=== PATIENT | male | born 1955 | race Caucasian/White ===

== ENCOUNTER 2020-09-22 12:05 | Day surgery (SDC) | payer MEDICARE, OTHER, MEDICAID ==
[~2020-09-22] VITALS: Ht 182.9 cm; Wt 68.5 kg
[2020-09-22] VITALS (10 sets, daily range): BP systolic 114–128; BP diastolic 68–81
[~2020-09-22 12:05] MED LIST: ASPI-1265 PO; ATOR20TA PO; DILT60CA2 PO; FLEC50TA28 PO; VANCOMYCIN INJ 1000 MG in NORMAL SALINE 250ml IV.SOLN IV ONE; albuterol 2.5 MG/3 ML nebule NEB ONE; cefazolin/dext.iso 2gm/100ml IV ONE; famotidine 20mg tablet PO ONE; ringers solution, lacted 1,000 ML IV SCH
[2020-09-22] MEDS ORDERED: bacitracin 15gm ointment TP ONE (16:28)
[2020-09-22] MEDS ORDERED: BUPIVAcaine/PF 2.5 mg/ml (0.25%) 30ml vial ONE (16:29)
[2020-09-22] MEDS ORDERED: midazolam 1 mg/ML 2ml injection ONE (16:45)
[2020-09-22] MEDS ORDERED: propofol inj 20 ML IV ONE (16:52)
[2020-09-22] MEDS ORDERED: LIDOcaine 2% (20mg/ml) 5ml vial ONE (16:53)
[2020-09-22] MEDS ORDERED: phenylephrine 10mg/ml inj. ONE ×2 (16:58→17:02)
[2020-09-22] MEDS ORDERED: fentaNYL/PF 50MCG/1 ML 2ML syringe ONE (17:01)
[2020-09-22] MEDS ORDERED: 0.9 % SODIUM CHLORIDE 10 ML VIAL ONE ×2 (17:14)
[2020-09-22] MEDS ORDERED: dexamethasone sod phosphate 4mg/ml inj. ONE (17:15)
[2020-09-22] MEDS ORDERED: ondansetron/PF 4mg/2ml inj ONE (17:15)
--- NOTE | 2020-09-22 17:46 | NUR ---
Received from OR via RUBEN, accompanied by Anesthesiologist DR GEE and report given by Anesthesiologist. 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 Addendum: 09/22/20 at 1810 by Mariel Benavides RN Amended: Links added.
--- NOTE | 2020-09-22 19:26 | NUR ---
PT COMFORTABLE, DENIES PAIN, VOIDED X 3, WAS ABLE TO PIVOT SELF FROM GURNEY TO W/C AND FROM W/C TO CAR W/O ANY INCIDENCE. D/C INSTRUCTIONS GIVEN AND GONE OVER W/PT AND PTS SISTER WHO VERBALIZED UNDERSTANDING. Addendum: 09/22/20 at 1940 by Mariel Benavides RN Amended: Links added.
== END 2020-09-22 19:26 | disposition home or self-care (01) ==
LOC: PAS 12:05
PROVIDERS: ATTEND Podiatrist Foot & Ankle Surgery
DX: M86.172 Other acute osteomyelitis, left ankle and foot (principal); I96 Gangrene, not elsewhere classified; I12.9 Hypertensive chronic kidney disease with stage 1 through stage 4 chronic kidney disease, or unspecified chronic kidney disease; N18.9 Chronic kidney disease, unspecified; Z79.899 Other long term (current) drug therapy; Z72.89 Other problems related to lifestyle; Z85.51 Personal history of malignant neoplasm of bladder; Z92.21 Personal history of antineoplastic chemotherapy; Z98.41 Cataract extraction status, right eye; Z98.42 Cataract extraction status, left eye; Z98.890 Other specified postprocedural states; Z87.891 Personal history of nicotine dependence
CPT/HCPCS: 28820; 82948; A6223; J1100; J2001; J2250; J2370; J2405; J2704; J3010; J3370; J3490; A4215; A4618; A6449; A7000; J7120

== ENCOUNTER 2021-09-06 10:07 | Inpatient (IN) | payer MEDICARE, OTHER, MEDICAID ==
[~2021-09-06] VITALS: Ht 182.9 cm; Wt 74.2 kg
[~2021-09-06 10:07] MED LIST changes: -VANCOMYCIN INJ 1000 MG in NORMAL SALINE 250ml IV.SOLN IV ONE; -albuterol 2.5 MG/3 ML nebule NEB ONE; -cefazolin/dext.iso 2gm/100ml IV ONE; -famotidine 20mg tablet PO ONE; -ringers solution, lacted 1,000 ML IV SCH
[2021-09-06 10:55] LABS: BASOPHILS % (AUTO) 0.9 % (0-1); EOSINOPHILS # (AUTO) 0.1 X10'3 (0-0.9); EOSINOPHILS % (AUTO) 2.8 % (0-6); HEMATOCRIT 41.2 % (42.0-52.0); HEMOGLOBIN 13.8 g/dl (14.0-17.9); LYMPHOCYTES % (AUTO) 21.9 % (21-51); MEAN CORPUSCULAR HEMOGLOBIN 31.8 PG (27.0-31.0); MEAN CORPUSCULAR HGB CONC 33.6 g/dL (33.0-36.5); MEAN CORPUSCULAR VOLUME 94.8 FL (78-98); MEAN PLATELET VOLUME 6.5 FL (7.4-10.4); MONOCYTES # (AUTO) 0.3 X10'3 (0-0.9); MONOCYTES % (AUTO) 7.3 % (2-12); NEUTROPHILS # (AUTO) 3.1 X10'3 (1.8-7.7); NEUTROPHILS % (AUTO) 67.1 % (42-75); PLATELET COUNT 403 X10'3 (140-440); RED BLOOD COUNT 4.34 X10'6 (4.70-6.10); RED CELL DISTRIBUTION WIDTH 15.3 % (11.5-14.5); WHITE BLOOD COUNT 4.6 X10'3 (4.5-11.0)
[2021-09-06 11:15] LABS: ALANINE AMINOTRANSFERASE 28 U/L (12-78); ALBUMIN 3.8 G/DL (3.4-5.0); ALKALINE PHOSPHATASE 73 IU/L (46-116); ANION GAP 8 (8-16); ASPARTATE AMINO TRANSFERASE 21 U/L (10-37); BILIRUBIN,TOTAL 0.2 MG/DL (0.1-1.0); BLOOD UREA NITROGEN 13 MG/DL (7-18); BUN/CREATININE RATIO 11.4 (5.4-32.0); CALCIUM 8.8 MG/DL (8.5-10.1); CHLORIDE 103 MMOL/L (99-107); CREATININE 1.14 MG/DL (0.60-1.10); GLUCOSE 99 MG/DL (70-104); POTASSIUM 4.2 MMOL/L (3.5-5.1); SODIUM 139 MMOL/L (135-145); TOTAL CARBON DIOXIDE 28.3 MMOL/L (24-32); TOTAL PROTEIN 7.8 G/DL (6.4-8.2); eGFR 64 ML/MIN
[2021-09-06] MEDS ORDERED: cefepime 2g/NS 100ml ADVANTAGE 100 ML IV ONE (11:40)
[2021-09-06] MEDS ORDERED: vancomycin/NS 1 GM ADD-VANTAGE 250 ML IV ONE (11:40)
[2021-09-06] MEDS ORDERED: NO HOME MEDS (13:07)
[2021-09-06] MEDS ORDERED: iohexol 350MG/ML 100ml bottle IV ONE (13:25)
[2021-09-06] MEDS ORDERED: iohexol 350 MG/ML 50ML vial IV ONE (13:25)
[2021-09-06] MEDS ORDERED: heparin 10,000 units/1 ML INJ IV PRN (17:25)
[2021-09-06] MEDS ORDERED: heparin 25,000 UNIT/250ml bag 250 ML IV SCH (17:25)
[2021-09-06] MEDS ORDERED: heparin 10,000 units/1 ML INJ IV ONE ×2 (17:25→17:50)
[2021-09-06] MEDS ORDERED: magnesium hydroxide 30ml (MOM) UD suspension PO PRN (18:05)
[2021-09-06] MEDS ORDERED: acetaminophen 650mg rectal suppository RC PRN (18:05)
[2021-09-06] MEDS ORDERED: diphenhydrAMINE 25mg capsule PO PRN (18:05)
[2021-09-06] MEDS ORDERED: mag hydrox/Alum hydrox/simeth 30ml oral suspension PO PRN (18:05)
[2021-09-06] MEDS ORDERED: HYDROcodone/acetaminophen 10/325mg tab PO PRN (18:05)
[2021-09-06] MEDS ORDERED: potassium Cl 20 mEq SR tablet PO PRN ×2 (18:05)
[2021-09-06] MEDS ORDERED: magnesium Cl slow-release 64mg tablet PO PRN (18:05)
[2021-09-06] MEDS ORDERED: magnesium 4gm in 100ml NS 100 ML IV PRN (18:05)
[2021-09-06] MEDS ORDERED: ondansetron/PF 4mg/2ml inj IV PRN (18:05)
[2021-09-06] MEDS ORDERED: potassium CL 10mEq/100ml bag 100 ML IV PRN (18:05)
[2021-09-06] MEDS ORDERED: morphine 2 MG/ML inj. syringe IV PRN ×2 (18:05)
[2021-09-06] MEDS ORDERED: magnesium 2GM in 50ml NS 50 ML IV PRN (18:05)
[2021-09-06] MEDS ORDERED: acetaminophen 325mg tablet PO PRN ×2 (18:05)
[2021-09-06] MEDS ORDERED: bisacodyl 10mg suppository rectal RC PRN (18:05)
[2021-09-06 18:06] LABS: BASOPHILS # (AUTO) 0.1 X10'3 (0-0.2); BASOPHILS % (AUTO) 1.1 % (0-1); EOSINOPHILS # (AUTO) 0.2 X10'3 (0-0.9); EOSINOPHILS % (AUTO) 3.9 % (0-6); HEMATOCRIT 38.5 % (42.0-52.0); HEMOGLOBIN 13.1 g/dl (14.0-17.9); LYMPHOCYTES # (AUTO) 1.5 X10'3 (1.1-4.8); LYMPHOCYTES % (AUTO) 29.6 % (21-51); MEAN CORPUSCULAR HEMOGLOBIN 32.5 PG (27.0-31.0); MEAN CORPUSCULAR VOLUME 95.7 FL (78-98); MEAN PLATELET VOLUME 6.5 FL (7.4-10.4); MONOCYTES # (AUTO) 0.4 X10'3 (0-0.9); MONOCYTES % (AUTO) 8.7 % (2-12); NEUTROPHILS # (AUTO) 2.8 X10'3 (1.8-7.7); NEUTROPHILS % (AUTO) 56.7 % (42-75); PLATELET COUNT 386 X10'3 (140-440); RED BLOOD COUNT 4.03 X10'6 (4.70-6.10); RED CELL DISTRIBUTION WIDTH 14.6 % (11.5-14.5)
[2021-09-06 18:18] LABS: APTT 35 SECONDS (22-32)
[2021-09-06 18:26] LABS: HEMOGLOBIN A1C 6.3 % (4.5-6.2)
[2021-09-06] MEDS: docusate sod 100mg capsule PO SCH (20:00)
[2021-09-06] MEDS: K and/or MAG REPLACEMENT MC SCH (20:22)
[2021-09-06 21:16] LABS: CLARITY,URINE CLEAR (Clear); COLOR,URINE YELLOW (Yellow); GLUCOSE, URINE NEGATIVE (Neg); KETONES,URINE NEGATIVE (Neg); LEUKOCYTE ESTERASE ,URINE NEGATIVE (Neg); NITRITES, URINE NEGATIVE (Neg); OCCULT BLOOD,URINE NEGATIVE (Neg); PROTEIN,URINE NEGATIVE (Neg); UROBILINOGEN,URINE 0.2 E.U/dL (0.2-1.0)
[2021-09-06] MEDS: normal saline 1000ml 1,000 ML IV SCH (21:29)
[2021-09-06 21:38] LABS: UA COLLECTION TYPE VOIDED
[2021-09-07] MEDS: vancomycin/NS 1 GM ADD-VANTAGE 250 ML IV SCH ×2 (00:46→12:05)
[2021-09-07] MEDS: piperacillin/tazo 3.375gm/50ml 50 ML IV SCH ×3 (00:46→18:00)
--- NOTE | 2021-09-07 03:00 | NUR ---
IV note patient incidently pulled out peripheral IV lines x 5. when asked how IV came out he said he did not know. "I was only using my urinal and did not feel anything." IV restarted by charge entry specialist all IV sites in left arm.
--- NOTE | 2021-09-07 06:11 | NUR ---
right AC attempted for am lab draw without success
[2021-09-07 06:41] LABS: BASOPHILS # (AUTO) 0.1 X10'3 (0-0.2); BASOPHILS % (AUTO) 1.2 % (0-1); EOSINOPHILS # (AUTO) 0.2 X10'3 (0-0.9); EOSINOPHILS % (AUTO) 4.5 % (0-6); HEMATOCRIT 40.9 % (42.0-52.0); HEMOGLOBIN 13.8 g/dl (14.0-17.9); LYMPHOCYTES # (AUTO) 0.8 X10'3 (1.1-4.8); LYMPHOCYTES % (AUTO) 18.5 % (21-51); MEAN CORPUSCULAR HEMOGLOBIN 31.8 PG (27.0-31.0); MEAN CORPUSCULAR HGB CONC 33.7 g/dL (33.0-36.5); MEAN CORPUSCULAR VOLUME 94.3 FL (78-98); MEAN PLATELET VOLUME 6.7 FL (7.4-10.4); MONOCYTES # (AUTO) 0.3 X10'3 (0-0.9); NEUTROPHILS # (AUTO) 2.9 X10'3 (1.8-7.7); NEUTROPHILS % (AUTO) 68.8 % (42-75); PLATELET COUNT 357 X10'3 (140-440); RED BLOOD COUNT 4.33 X10'6 (4.70-6.10); RED CELL DISTRIBUTION WIDTH 14.6 % (11.5-14.5); WHITE BLOOD COUNT 4.3 X10'3 (4.5-11.0)
--- NOTE | 2021-09-07 07:00 | NUR ---
Pt given warm blanket, checked vitals. No apparent distress or further needs at this time.
[2021-09-07 07:14] LABS: ALANINE AMINOTRANSFERASE 22 U/L (12-78); ALBUMIN 3.3 G/DL (3.4-5.0); ALBUMIN/GLOBULIN RATIO 0.9 (1.1-1.5); ALKALINE PHOSPHATASE 73 IU/L (46-116); ANION GAP 10 (8-16); ASPARTATE AMINO TRANSFERASE 21 U/L (10-37); BILIRUBIN,TOTAL 0.4 MG/DL (0.1-1.0); BLOOD UREA NITROGEN 12 MG/DL (7-18); BUN/CREATININE RATIO 11.4 (5.4-32.0); CALCIUM 8.5 MG/DL (8.5-10.1); CHLORIDE 103 MMOL/L (99-107); CHOL/HDL RATIO 2.7 (0.00-4.99); CHOLESTEROL 127 MG/DL (0-200); CREATININE 1.05 MG/DL (0.60-1.10); GLUCOSE 91 MG/DL (70-104); HDL CHOLESTEROL 47 MG/DL (35-60); LDL CHOLESTEROL 74 MG/DL (50-100); MAGNESIUM 2.1 MG/DL (1.5-2.4); PHOSPHORUS 3.4 MG/DL (2.3-4.5); POTASSIUM 4.2 MMOL/L (3.5-5.1); SODIUM 138 MMOL/L (135-145); TOTAL CARBON DIOXIDE 25.2 MMOL/L (24-32); TRIGLYCERIDES 55 MG/DL (20-135); eGFR 71 ML/MIN
[2021-09-07] MEDS: normal saline 1000ml 1,000 ML IV SCH ×2 (07:21→20:45)
[2021-09-07] MEDS: docusate sod 100mg capsule PO SCH ×2 (08:00→20:00)
[2021-09-07] MEDS: K and/or MAG REPLACEMENT MC SCH ×2 (08:00→20:00)
--- NOTE | 2021-09-07 09:57 | NUR ---
Pt ate about 75% of his breakfast. No apparent distress or needs. Changed his linens, pt was up to bedside commode and had 1 BM. 580ml UA clear yellow.
--- NOTE | 2021-09-07 11:30 | NUR ---
Sister visited pt and updated on progress.
--- NOTE | 2021-09-07 12:00 | NUR ---
Abx hung. Pt helped into comfortable position, no further needs. Lights turned off for comfort.
[2021-09-07 12:28] LABS: APTT 44 SECONDS (22-32)
--- NOTE | 2021-09-07 13:56 | NUR ---
Held the bolus because pt was at PTT of 44, one point from therapeutic level. Increased rate by 2 units/kg/hr. See flowsheet for further.
--- NOTE | 2021-09-07 14:55 | NUR ---
Pt sleeping, no apparent distress at this time.
--- NOTE | 2021-09-07 15:13 | NUR ---
Emptied urinal- 450ml light yellow urine.
--- NOTE | 2021-09-07 15:17 | NUR ---
Called PCU to give report. RN to call back.
[2021-09-07] MEDS ORDERED: nitroGLYCERIN 0.4mg SUBLingual tab SL PRN (17:00)
[2021-09-07] MEDS ORDERED: PERFLUTREN PROTEIN-A MICROSPHR (Optison) 0.22 MG/ML 3ML VIAL IV ONE (17:00)
[2021-09-07] MEDS ORDERED: aminophylline 500mg/20ml vial IV PRN (17:00)
[2021-09-07] MEDS ORDERED: metoprolol tartrate 1mg/ml inj IV PRN (17:00)
[2021-09-07] MEDS ORDERED: regadenoson 0.4mg/5ml syringe IV PRN (17:00)
[2021-09-07 18:00] VITALS: BP 106/72
--- NOTE | 2021-09-07 18:20 | NUR ---
Patient in room PCU 3015. I have received report from YENY Medina and had the opportunity to ask questions and assume patient care.
--- NOTE | 2021-09-07 18:21 | NUR ---
Problems reprioritized. Patient report given, questions answered & plan of care reviewed with YENY Gao RN.
--- NOTE | 2021-09-07 19:01 | NUR ---
Patient in room PCU 3015. I have received report from YENY Medina and had the opportunity to ask questions and assume patient care.
--- NOTE | 2021-09-07 20:22 | NUR ---
[id number]-JASON COMBS-ON HEPARIN GTT; NEED CHANGE OF ORDER FOR DVT HEPARIN PROTOCOL-PATIENT ON INCORRECT HEPARIN PROTOCOL ON EMAR-PLEASE CALL YENY AT [phone]. THANK YOU
[2021-09-07] MEDS ORDERED: heparin 10,000 units/1 ML INJ IV ONE (20:25)
[2021-09-07] MEDS: heparin 25,000 UNIT/250ml bag 250 ML IV SCH (21:27)
[2021-09-07 22:00] VITALS: BP 112/64
[2021-09-07] MEDS ORDERED: VANCOMYCIN LEVEL IV ONE (23:30)
[2021-09-08] VITALS (13 sets, daily range): BP systolic 83–119; BP diastolic 46–86
[2021-09-08] MEDS: vancomycin/NS 1 GM ADD-VANTAGE 250 ML IV SCH (00:06)
[2021-09-08] MEDS: heparin 10,000 units/1 ML INJ IV PRN ×2 (00:53→13:28)
[2021-09-08] MEDS: heparin 25,000 UNIT/250ml bag 250 ML IV SCH ×3 (00:55→21:42)
[2021-09-08] MEDS: piperacillin/tazo 3.375gm/50ml 50 ML IV SCH ×3 (04:05→16:35)
--- NOTE | 2021-09-08 06:32 | NUR ---
Problems reprioritized. Patient report given, questions answered & plan of care reviewed with YENY Agee
[2021-09-08 06:49] LABS: BASOPHILS % (AUTO) 0.8 % (0-1); EOSINOPHILS # (AUTO) 0.2 X10'3 (0-0.9); EOSINOPHILS % (AUTO) 4.5 % (0-6); HEMATOCRIT 37.2 % (42.0-52.0); HEMOGLOBIN 12.8 g/dl (14.0-17.9); LYMPHOCYTES % (AUTO) 22.2 % (21-51); MEAN CORPUSCULAR HEMOGLOBIN 32.6 PG (27.0-31.0); MEAN CORPUSCULAR HGB CONC 34.3 g/dL (33.0-36.5); MEAN CORPUSCULAR VOLUME 95.1 FL (78-98); MEAN PLATELET VOLUME 6.7 FL (7.4-10.4); MONOCYTES # (AUTO) 0.4 X10'3 (0-0.9); MONOCYTES % (AUTO) 8.3 % (2-12); NEUTROPHILS # (AUTO) 2.9 X10'3 (1.8-7.7); NEUTROPHILS % (AUTO) 64.2 % (42-75); PLATELET COUNT 334 X10'3 (140-440); RED BLOOD COUNT 3.91 X10'6 (4.70-6.10); RED CELL DISTRIBUTION WIDTH 14.5 % (11.5-14.5); WHITE BLOOD COUNT 4.5 X10'3 (4.5-11.0)
[2021-09-08] MEDS: docusate sod 100mg capsule PO SCH ×2 (07:21→20:06)
--- NOTE | 2021-09-08 07:22 | NUR ---
Message: [id number] Genaro Corrales Do you still want stress test for srx clearance? He had one a year ago. Nuc med is asking. And his ptt is greater than 139, I stopped the heparin gtt.
[2021-09-08 07:29] LABS: ALANINE AMINOTRANSFERASE 21 U/L (12-78); ALBUMIN/GLOBULIN RATIO 0.8 (1.1-1.5); ALKALINE PHOSPHATASE 61 IU/L (46-116); ANION GAP 8 (8-16); ASPARTATE AMINO TRANSFERASE 21 U/L (10-37); BILIRUBIN,TOTAL 0.4 MG/DL (0.1-1.0); BLOOD UREA NITROGEN 13 MG/DL (7-18); CALCIUM 8.3 MG/DL (8.5-10.1); CHLORIDE 104 MMOL/L (99-107); CREATININE 1.08 MG/DL (0.60-1.10); GLUCOSE 90 MG/DL (70-104); MAGNESIUM 2.1 MG/DL (1.5-2.4); PHOSPHORUS 3.3 MG/DL (2.3-4.5); POTASSIUM 3.9 MMOL/L (3.5-5.1); SODIUM 138 MMOL/L (135-145); TOTAL CARBON DIOXIDE 25.7 MMOL/L (24-32); TOTAL PROTEIN 6.6 G/DL (6.4-8.2); eGFR 69 ML/MIN
[2021-09-08] MEDS: K and/or MAG REPLACEMENT MC SCH ×2 (08:00→20:00)
--- NOTE | 2021-09-08 09:05 | NUR ---
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 Addendum: 09/08/21 at 0911 by Merle Best LVN Amended: Links added.
[2021-09-08] MEDS: normal saline 1000ml 1,000 ML IV SCH ×2 (13:20→23:25)
[2021-09-08] MEDS: VANCOmycin 1250MG/NS 250ml Bag 250 ML IV SCH (13:42)
--- NOTE | 2021-09-08 18:07 | NUR ---
Pt was off the unit at 1100 vitals. Addendum: 09/08/21 at 1808 by Merle Best LVN Amended: Links added.
--- NOTE | 2021-09-08 18:18 | NUR ---
report received from YENY Medina RN
--- NOTE | 2021-09-08 18:48 | NUR ---
RECEIVED PATIENT REPORT FROM ELIESER VOGT. [place] VOGT
[2021-09-09] MEDS: VANCOmycin 1250MG/NS 250ml Bag 250 ML IV SCH ×2 (00:27→12:00)
[2021-09-09] MEDS: piperacillin/tazo 3.375gm/50ml 50 ML IV SCH ×3 (00:38→16:28)
[2021-09-09 02:00] VITALS: BP 99/68
[2021-09-09] MEDS: heparin 25,000 UNIT/250ml bag 250 ML IV SCH ×2 (03:46→04:47)
[2021-09-09 06:00] VITALS: BP 119/59
--- NOTE | 2021-09-09 06:37 | NUR ---
PATIENT REPORT GIVEN TO SILVA HO RN.
[2021-09-09 06:58] LABS: BASOPHILS % (AUTO) 0.7 % (0-1); EOSINOPHILS # (AUTO) 0.2 X10'3 (0-0.9); EOSINOPHILS % (AUTO) 5.3 % (0-6); HEMATOCRIT 38.5 % (42.0-52.0); HEMOGLOBIN 12.9 g/dl (14.0-17.9); LYMPHOCYTES # (AUTO) 0.9 X10'3 (1.1-4.8); MEAN CORPUSCULAR HEMOGLOBIN 31.9 PG (27.0-31.0); MEAN CORPUSCULAR HGB CONC 33.6 g/dL (33.0-36.5); MEAN PLATELET VOLUME 6.9 FL (7.4-10.4); MONOCYTES # (AUTO) 0.4 X10'3 (0-0.9); MONOCYTES % (AUTO) 9.9 % (2-12); NEUTROPHILS # (AUTO) 2.9 X10'3 (1.8-7.7); NEUTROPHILS % (AUTO) 64.1 % (42-75); PLATELET COUNT 333 X10'3 (140-440); RED BLOOD COUNT 4.05 X10'6 (4.70-6.10); WHITE BLOOD COUNT 4.5 X10'3 (4.5-11.0)
[2021-09-09 07:10] LABS: ALANINE AMINOTRANSFERASE 21 U/L (12-78); ALBUMIN/GLOBULIN RATIO 0.7 (1.1-1.5); ALKALINE PHOSPHATASE 57 IU/L (46-116); ANION GAP 9 (8-16); ASPARTATE AMINO TRANSFERASE 19 U/L (10-37); BILIRUBIN,TOTAL 0.3 MG/DL (0.1-1.0); BLOOD UREA NITROGEN 12 MG/DL (7-18); BUN/CREATININE RATIO 11.1 (5.4-32.0); CALCIUM 8.7 MG/DL (8.5-10.1); CHLORIDE 104 MMOL/L (99-107); CREATININE 1.08 MG/DL (0.60-1.10); GLUCOSE 88 MG/DL (70-104); MAGNESIUM 2.3 MG/DL (1.5-2.4); PHOSPHORUS 3.3 MG/DL (2.3-4.5); POTASSIUM 4.1 MMOL/L (3.5-5.1); SODIUM 138 MMOL/L (135-145); TOTAL PROTEIN 7.3 G/DL (6.4-8.2); eGFR 69 ML/MIN
[2021-09-09] MEDS: K and/or MAG REPLACEMENT MC SCH ×2 (07:58→20:00)
[2021-09-09] MEDS: docusate sod 100mg capsule PO SCH ×2 (08:00→21:26)
[2021-09-09 11:00] VITALS: BP 83/45
[2021-09-09] MEDS: normal saline 1000ml 1,000 ML IV SCH (12:45)
[2021-09-09] MEDS: heparin 10,000 units/1 ML INJ IV PRN (14:04)
[2021-09-09 17:00] VITALS: BP 96/55
[2021-09-09 18:00] VITALS: BP 108/65
[2021-09-09 20:38] LABS: APTT 126 SECONDS (22-32)
--- NOTE | 2021-09-09 21:09 | NUR ---
RN called to notify pharmacy that vancomycin trough is 28.5, however, vancomycin trough is ordered for 0 on 09/09/21. Vancomycin dose is scheduled for 2329. Pharmacy states they will return the phone call regarding clarification of adminstration of vancomycin dose for 2329.
--- NOTE | 2021-09-09 21:19 | NUR ---
RN paged Dr. James at 7210 to notify that patient's APTT is 126, heparin gtt has been stopped per protocol and will be restarted in 2 hours. Last PTT prior to this was 31. Awaiting response at this time.
--- NOTE | 2021-09-09 21:39 | NUR ---
Dr. James returned call regarding previous note's page at [phone], no new orders received.
[2021-09-09 22:00] VITALS: BP 108/62
[2021-09-09] MEDS ORDERED: VANCOMYCIN LEVEL IV ONE (23:30)
[2021-09-10] MEDS: VANCOmycin 1250MG/NS 250ml Bag 250 ML IV SCH
--- NOTE | 2021-09-10 00:15 | NUR ---
RN called pharmacy to notify that vancomycin trough has resulted as 22.6 and there is a vancomycin dose ordered for 0000. RN spoke with pharmacist Jennifer whom states to administer vancomycin dose in 2-3 hours.
[2021-09-10] MEDS: piperacillin/tazo 3.375gm/50ml 50 ML IV SCH ×3 (00:20→15:36)
[2021-09-10] MEDS ORDERED: VANCOmycin 1250MG/NS 250ml Bag 250 ML IV SCH (00:27)
[2021-09-10 02:00] VITALS: BP 104/63
[2021-09-10] MEDS: normal saline 1000ml 1,000 ML IV SCH ×2 (02:05→15:32)
[2021-09-10 02:38] LABS: APTT 35 SECONDS (22-32)
[2021-09-10] MEDS: heparin 10,000 units/1 ML INJ IV PRN ×2 (02:59→19:42)
[2021-09-10] MEDS: heparin 25,000 UNIT/250ml bag 250 ML IV SCH (05:10)
[2021-09-10 06:30] VITALS: BP 118/77
[2021-09-10] MEDS: docusate sod 100mg capsule PO SCH ×2 (08:00→19:56)
[2021-09-10] MEDS: K and/or MAG REPLACEMENT MC SCH ×2 (08:00→19:57)
[2021-09-10 08:18] LABS: ALANINE AMINOTRANSFERASE 24 U/L (12-78); ALBUMIN 3.2 G/DL (3.4-5.0); ALBUMIN/GLOBULIN RATIO 0.8 (1.1-1.5); ALKALINE PHOSPHATASE 57 IU/L (46-116); ANION GAP 12 (8-16); ASPARTATE AMINO TRANSFERASE 26 U/L (10-37); BILIRUBIN,TOTAL 0.3 MG/DL (0.1-1.0); BLOOD UREA NITROGEN 12 MG/DL (7-18); BUN/CREATININE RATIO 10.8 (5.4-32.0); CALCIUM 8.7 MG/DL (8.5-10.1); CHLORIDE 104 MMOL/L (99-107); CREATININE 1.11 MG/DL (0.60-1.10); GLUCOSE 93 MG/DL (70-104); PHOSPHORUS 3.7 MG/DL (2.3-4.5); POTASSIUM 4.3 MMOL/L (3.5-5.1); SODIUM 138 MMOL/L (135-145); TOTAL CARBON DIOXIDE 22.3 MMOL/L (24-32); eGFR 66 ML/MIN
[2021-09-10 08:57] LABS: BASOPHILS % (AUTO) 0.6 % (0-1); EOSINOPHILS # (AUTO) 0.3 X10'3 (0-0.9); EOSINOPHILS % (AUTO) 5.8 % (0-6); HEMATOCRIT 38.6 % (42.0-52.0); HEMOGLOBIN 13.2 g/dl (14.0-17.9); LYMPHOCYTES % (AUTO) 20.1 % (21-51); MEAN CORPUSCULAR HEMOGLOBIN 32.5 PG (27.0-31.0); MEAN CORPUSCULAR HGB CONC 34.2 g/dL (33.0-36.5); MEAN CORPUSCULAR VOLUME 94.8 FL (78-98); MONOCYTES # (AUTO) 0.4 X10'3 (0-0.9); MONOCYTES % (AUTO) 8.1 % (2-12); NEUTROPHILS # (AUTO) 3.2 X10'3 (1.8-7.7); NEUTROPHILS % (AUTO) 65.4 % (42-75); PLATELET COUNT 317 X10'3 (140-440); RED BLOOD COUNT 4.08 X10'6 (4.70-6.10); WHITE BLOOD COUNT 4.9 X10'3 (4.5-11.0)
[2021-09-10 10:00] LABS: APTT > 139 SECONDS (22-32)
[2021-09-10 15:00] VITALS: BP 109/64
--- NOTE | 2021-09-10 15:45 | NUR ---
1545 Called OR, pt has been off heparin gtt since 999. Spoke with RN in surgery with Dr. Kwon and he said to "hold" the heparin drip for now.
--- NOTE | 2021-09-10 16:38 | NUR ---
9565 Received call from OR: Dr. Croft will not be doing surgery today, patient can have dinner tonight then be NPO at midnight tonight. Restart Heparin drip. stat PTT ordered. Diet ordered for dinner. Patient and Charge nurse informed.
[2021-09-10] MEDS: vancomycin/NS 1 GM ADD-VANTAGE 250 ML IV SCH (17:00)
[2021-09-10 18:00] VITALS: BP 112/73
[2021-09-10] MEDS ORDERED: ringers solution, lacted 1,000 ML IV ONE (18:05)
--- NOTE | 2021-09-10 18:39 | NUR ---
Patient in room PCU 3015. I have received report from breanna schafer and had the opportunity to ask questions and assume patient care.
--- NOTE | 2021-09-10 18:39 | NUR ---
Patient in room PCU 3015. I have received report from Divine VOGT and had the opportunity to ask questions and assume patient care.
[2021-09-10 22:00] VITALS: BP 100/64
[2021-09-11] VITALS (19 sets, daily range): BP systolic 99–153; BP diastolic 56–88
[2021-09-11] MEDS: piperacillin/tazo 3.375gm/50ml 50 ML IV SCH ×3 (00:27→16:00)
[2021-09-11 02:18] LABS: BASOPHILS # (AUTO) 0.1 X10'3 (0-0.2); EOSINOPHILS # (AUTO) 0.3 X10'3 (0-0.9); EOSINOPHILS % (AUTO) 5.4 % (0-6); HEMATOCRIT 38.2 % (42.0-52.0); LYMPHOCYTES # (AUTO) 1.1 X10'3 (1.1-4.8); LYMPHOCYTES % (AUTO) 19.4 % (21-51); MEAN CORPUSCULAR HEMOGLOBIN 32.6 PG (27.0-31.0); MEAN CORPUSCULAR HGB CONC 34.1 g/dL (33.0-36.5); MEAN CORPUSCULAR VOLUME 95.7 FL (78-98); MEAN PLATELET VOLUME 7.1 FL (7.4-10.4); MONOCYTES # (AUTO) 0.4 X10'3 (0-0.9); NEUTROPHILS # (AUTO) 3.9 X10'3 (1.8-7.7); NEUTROPHILS % (AUTO) 67.2 % (42-75); PLATELET COUNT 324 X10'3 (140-440); RED BLOOD COUNT 3.99 X10'6 (4.70-6.10); RED CELL DISTRIBUTION WIDTH 14.8 % (11.5-14.5); WHITE BLOOD COUNT 5.7 X10'3 (4.5-11.0)
[2021-09-11 02:31] LABS: ALANINE AMINOTRANSFERASE 26 U/L (12-78); ALBUMIN 2.8 G/DL (3.4-5.0); ALBUMIN/GLOBULIN RATIO 0.7 (1.1-1.5); ALKALINE PHOSPHATASE 53 IU/L (46-116); ANION GAP 12 (8-16); ASPARTATE AMINO TRANSFERASE 19 U/L (10-37); BILIRUBIN,TOTAL 0.3 MG/DL (0.1-1.0); BLOOD UREA NITROGEN 11 MG/DL (7-18); BUN/CREATININE RATIO 9.1 (5.4-32.0); CALCIUM 8.3 MG/DL (8.5-10.1); CHLORIDE 104 MMOL/L (99-107); CREATININE 1.21 MG/DL (0.60-1.10); GLUCOSE 95 MG/DL (70-104); PHOSPHORUS 3.9 MG/DL (2.3-4.5); POTASSIUM 3.9 MMOL/L (3.5-5.1); SODIUM 140 MMOL/L (135-145); TOTAL CARBON DIOXIDE 24.5 MMOL/L (24-32); TOTAL PROTEIN 6.6 G/DL (6.4-8.2); eGFR 60 ML/MIN
[2021-09-11] MEDS: normal saline 1000ml 1,000 ML IV SCH ×2 (04:45→18:05)
[2021-09-11] MEDS ORDERED: famotidine 20mg tablet PO ONE (06:00)
[2021-09-11] MEDS ORDERED: heparin 10,000 units/1 ML INJ ONE (07:40)
[2021-09-11] MEDS ORDERED: clindamycin phosphate 150mg/ml inj. ONE (07:40)
[2021-09-11] MEDS ORDERED: gentamicin 40 MG/1 ML inj ONE (07:40)
[2021-09-11] MEDS: K and/or MAG REPLACEMENT MC SCH ×2 (08:00→20:00)
[2021-09-11] MEDS: docusate sod 100mg capsule PO SCH ×2 (08:00→20:00)
[2021-09-11] MEDS: vancomycin/NS 1 GM ADD-VANTAGE 250 ML IV SCH ×2 (08:04→17:00)
[2021-09-11] MEDS ORDERED: morphine 4 MG/ML inj SYRINge IV PRN (08:30)
[2021-09-11] MEDS ORDERED: ondansetron/PF 4mg/2ml inj IV PRN ×2 (08:30→15:40)
[2021-09-11] MEDS ORDERED: morphine 2 MG/ML inj. syringe IV PRN (08:30)
[2021-09-11] MEDS ORDERED: fentaNYL/PF 50MCG/1 ML 2ML syringe IV PRN ×2 (08:30)
[2021-09-11] MEDS ORDERED: ringers solution, lacted 1,000 ML IV SCH ×2 (08:30→15:40)
[2021-09-11] MEDS ORDERED: hydrALAZINE 20mg/ml inj. IV PRN (08:30)
[2021-09-11] MEDS ORDERED: labetalol 20mg/4ml (5mg/ml) syringe IV PRN (08:30)
--- NOTE | 2021-09-11 08:40 | NUR ---
Initial: Pt admitted w/ severe peripheral vascular disease, possible osteomyelitis of the fifth digit with dry gangrene on top per EMR. Currently NPO for OR though was previously on Heart Healthy diet w/ ~75% avg PO intake of meals which is likely meeting his est nutrient needs. [facility] 09/07 receiving routine colace. No nutrition intervention implemented at this time, will continue to monitor. Recs: 1. Continue Heart Healthy diet as tolerated s/p procedure 2. Monitor need for ONS 3. Routine bowel care 4. Weekly wts Addendum: 09/11/21 at [address] Amended: Links added.
[2021-09-11] MEDS ORDERED: ePHEDrine 50MG/ML INJ. ONE (10:08)
[2021-09-11] MEDS ORDERED: sevoflurane 250ml liquid IH ONE (10:08)
[2021-09-11] MEDS ORDERED: midazolam 1 mg/ML 2ml injection ONE (10:10)
[2021-09-11] MEDS ORDERED: fentaNYL /PF 50mcg/ml 5ml ampule ONE (10:10)
[2021-09-11] MEDS ORDERED: propofol inj 20 ML IV ONE (10:12)
[2021-09-11] MEDS ORDERED: LIDOcaine 2% (20mg/ml) 5ml vial ONE (10:12)
[2021-09-11] MEDS ORDERED: dexamethasone sod phosphate 4mg/ml inj. ONE (10:12)
[2021-09-11] MEDS ORDERED: rocuronium 10mg/ml inj IV ONE ×3 (10:12)
[2021-09-11] MEDS ORDERED: ondansetron/PF 4mg/2ml inj ONE (10:12)
[2021-09-11] MEDS ORDERED: nitroPRUSSIDE (NIPRIDE) (200MCG/ML) 100ML Drip IV SCH (10:25)
[2021-09-11] MEDS ORDERED: PHENYLephrine 100 MG in NS 250ml IV soln IV SCH (10:25)
[2021-09-11] MEDS ORDERED: ceFAZolin 1000mg inj ONE ×2 (10:57→10:58)
--- NOTE | 2021-09-11 11:56 | NUR ---
[id number] assumed care of patient during this time. A/ox4, VSS, RA, No c/o pain. Heparin drip stopped at 0700. Pt able to make needs known. Pt has been NPO since midnight. 1200 POKER PROP PLAYER gathering up patient belongings and will take to new room.
[2021-09-11] MEDS ORDERED: albumin (Human) 5% 250ml 500 ML IV ONE ×3 (13:00→14:17)
[2021-09-11] MEDS ORDERED: albumin (Human) 5% 250ml 250 ML IV ONE ×4 (13:01→20:45)
[2021-09-11] MEDS ORDERED: heparin 1,000unit/ml 10ml vial 10 ML ONE (13:37)
[2021-09-11] MEDS ORDERED: fentaNYL/PF 50MCG/1 ML 2ML syringe ONE (14:30)
[2021-09-11] MEDS ORDERED: sugammadex 200mg/2ml injection IV ONE (15:22)
[2021-09-11] MEDS ORDERED: nitroPRUSSIDE sod inj. 50 MG in dextrose 5%-water 248 ML IV PRN (15:40)
[2021-09-11] MEDS ORDERED: midazolam 100mg in NS 100ml 100 ML IV PRN (15:40)
[2021-09-11] MEDS ORDERED: phenylephrine inj 50 MG in normal saline 250ml IV soln 250 ML IV PRN (15:40)
[2021-09-11] MEDS ORDERED: MIDAZolam 1 MG/ML 5ML VIAL ONE (15:50)
[2021-09-11] MEDS ORDERED: nitroPRUSSIDE 0.2mg/mL in NS 100 ML IV PRN (16:06)
--- NOTE | 2021-09-11 16:30 | NUR ---
Received from OR via BED, accompanied by Anesthesiologist REGAN and report given by Anesthesiolgist. PT SEDATED, NOT AROUSING TO VERBAL STIMULI OR MOVING EXTREMITIES YET. ETT IN PLACE, ON VENTILATOR, CXR ORDERED FOR ETT/LINE PLACEMENT. VSS, R RADIAL ART LINE. HYPOTHERMIC AT 34.4, HARIKA HUGGER ON. MIDLINE INCISION COVERED WITH ISLAND DSG, CDI. PROVENA DSGS TO B GROINS, ATTACHED TO WOUND VAC. FOAMS ARE FIRM, APPEARS TO HAVE GOOD SX DESPITE VAC ALARMING LEAK (DUE TO PT SKIN CONDITION) L PT PULSE PER DOPPLER, R DP PULSE TO DOPPLER. DR HAYS AWARE. OGT TO SX. DRY BLACK COLORED SMALL TOE ON LEFT FOOT. FC PATENT.
[2021-09-11] MEDS: FENTANYL-0.9 % NACL/PF 100 ML IV PRN (17:05)
[2021-09-11 17:38] LABS: ABG BASE EXCESS -10.6 mmol/L (-2.0-2.0); ABG HCO3 15.6 mmol/L (22.0-26.0); ABG OXYGEN SATURATION 96.6 % (94-97); ABG PCO2 (T) 32.2 mmHg (35.0-48.0); ABG PO2 (T) 90.3 mmHg (75.0-100.0); FCOHb 0.3 % (0.0-3.9); FMetHb 0.2 % (0.0-1.5); FO2Hb 96.1 % (94-97); PATIENT TEMPERATURE 34.6; PEEP 5 cm H2O; RESPIRATORY RATE 12 b/min; TIDAL VOLUME 550 mL; TOTAL HEMOGLOBIN 11.3 G/dl (14.0-18.0)
--- NOTE | 2021-09-11 17:40 | NUR ---
CXR DONE. IV SEDATION HUNG. NIPRIDE/NATHALIA TO KEEP SBP 120-130. REPORT GIVEN TO RECEVING RN. PT STABLE AT TRANSFER OF CARE.
--- NOTE | 2021-09-11 18:33 | NUR ---
Patient in room ICU 2040. I have received report from Lisa VOGT and had the opportunity to ask questions and assume patient care. VS were stable at end of my shift. Vent settings changed s/p abg results. Rate and FiO2 decreased based on ABG. Report given to Deni VOGT based on report from PERSONAL CLOTHING LAUNDRY AIDE. Reviewed drips at bedside. Examined Provina VAC that has an air leak. Sponges appear to be well suctioned despite air leak on machine. Pts skin condition may prevent good seal per OR team. No drainage note on either VAC. EBL reviewed with Deni on anesthesia record.
--- NOTE | 2021-09-11 20:00 | NUR ---
Called Dr Croft regarding HR and low CVP. Orders received for albumin, see EMAR. Also received order to DC heparin gtt.
[2021-09-11 20:11] LABS: BASOPHILS % (AUTO) 0.1 % (0-1); EOSINOPHILS % (AUTO) 0 % (0-6); HEMOGLOBIN 11.5 g/dl (14.0-17.9); LYMPHOCYTES # (AUTO) 0.3 X10'3 (1.1-4.8); LYMPHOCYTES % (AUTO) 3.9 % (21-51); MEAN CORPUSCULAR HEMOGLOBIN 32.4 PG (27.0-31.0); MEAN CORPUSCULAR HGB CONC 33.8 g/dL (33.0-36.5); MEAN CORPUSCULAR VOLUME 96.1 FL (78-98); MONOCYTES # (AUTO) 0.4 X10'3 (0-0.9); MONOCYTES % (AUTO) 4.2 % (2-12); NEUTROPHILS # (AUTO) 7.8 X10'3 (1.8-7.7); NEUTROPHILS % (AUTO) 91.8 % (42-75); PLATELET COUNT 246 X10'3 (140-440); RED BLOOD COUNT 3.54 X10'6 (4.70-6.10); RED CELL DISTRIBUTION WIDTH 15.1 % (11.5-14.5); WHITE BLOOD COUNT 8.5 X10'3 (4.5-11.0)
[2021-09-11 20:29] LABS: ALANINE AMINOTRANSFERASE 17 U/L (12-78); ALBUMIN 3.6 G/DL (3.4-5.0); ALBUMIN/GLOBULIN RATIO 1.5 (1.1-1.5); ALKALINE PHOSPHATASE 33 IU/L (46-116); ANION GAP 17 (8-16); ASPARTATE AMINO TRANSFERASE 14 U/L (10-37); BILIRUBIN,TOTAL 0.7 MG/DL (0.1-1.0); BLOOD UREA NITROGEN 12 MG/DL (7-18); BUN/CREATININE RATIO 10.2 (5.4-32.0); CALCIUM 7.6 MG/DL (8.5-10.1); CHLORIDE 107 MMOL/L (99-107); CREATININE 1.18 MG/DL (0.60-1.10); GLUCOSE 169 MG/DL (70-104); MAGNESIUM 1.7 MG/DL (1.5-2.4); PHOSPHORUS 4.3 MG/DL (2.3-4.5); POTASSIUM 3.7 MMOL/L (3.5-5.1); SODIUM 142 MMOL/L (135-145); TOTAL CARBON DIOXIDE 18.1 MMOL/L (24-32); eGFR 62 ML/MIN
[2021-09-11 22:17] LABS: TOTAL CELLS COUNTED 100
[2021-09-11 22:23] LABS: PLATELET ESTIMATE NORMAL
[2021-09-12] VITALS (30 sets, daily range): BP systolic 99–128; BP diastolic 54–72
[2021-09-12 03:06] LABS: APTT 32 SECONDS (22-32)
[2021-09-12 03:09] LABS: ALANINE AMINOTRANSFERASE 17 U/L (12-78); ALBUMIN 3.5 G/DL (3.4-5.0); ALBUMIN/GLOBULIN RATIO 1.5 (1.1-1.5); ALKALINE PHOSPHATASE 26 IU/L (46-116); ANION GAP 13 (8-16); ASPARTATE AMINO TRANSFERASE 12 U/L (10-37); BASOPHILS % (AUTO) 0.1 % (0-1); BILIRUBIN,TOTAL 0.4 MG/DL (0.1-1.0); BLOOD UREA NITROGEN 12 MG/DL (7-18); BUN/CREATININE RATIO 10.9 (5.4-32.0); CALCIUM 7.5 MG/DL (8.5-10.1); CHLORIDE 108 MMOL/L (99-107); EOSINOPHILS % (AUTO) 0 % (0-6); GLUCOSE 126 MG/DL (70-104); HEMATOCRIT 28.9 % (42.0-52.0); HEMOGLOBIN 9.8 g/dl (14.0-17.9); LYMPHOCYTES # (AUTO) 0.5 X10'3 (1.1-4.8); LYMPHOCYTES % (AUTO) 8.1 % (21-51); MAGNESIUM 1.9 MG/DL (1.5-2.4); MEAN CORPUSCULAR HEMOGLOBIN 32.4 PG (27.0-31.0); MEAN CORPUSCULAR VOLUME 95.4 FL (78-98); MEAN PLATELET VOLUME 6.9 FL (7.4-10.4); MONOCYTES # (AUTO) 0.5 X10'3 (0-0.9); NEUTROPHILS # (AUTO) 4.9 X10'3 (1.8-7.7); NEUTROPHILS % (AUTO) 83.8 % (42-75); PHOSPHORUS 3.9 MG/DL (2.3-4.5); PLATELET COUNT 193 X10'3 (140-440); POTASSIUM 4.2 MMOL/L (3.5-5.1); RED BLOOD COUNT 3.03 X10'6 (4.70-6.10); RED CELL DISTRIBUTION WIDTH 14.5 % (11.5-14.5); SODIUM 141 MMOL/L (135-145); TOTAL CARBON DIOXIDE 20.5 MMOL/L (24-32); TOTAL PROTEIN 5.8 G/DL (6.4-8.2); WHITE BLOOD COUNT 5.9 X10'3 (4.5-11.0); eGFR 67 ML/MIN
[2021-09-12 03:18] LABS: ABG BASE EXCESS -4.6 mmol/L (-2.0-2.0); ABG HCO3 19.6 mmol/L (22.0-26.0); ABG OXYGEN SATURATION 98.1 % (94-97); ABG PCO2 (T) 32.6 mmHg (35.0-48.0); ABG PO2 (T) 127.4 mmHg (75.0-100.0); FCOHb 0.3 % (0.0-3.9); FMetHb 0.2 % (0.0-1.5); FO2Hb 97.6 % (94-97); PATIENT TEMPERATURE 36.6; PEEP 5 cm H2O; RESPIRATORY RATE 10 b/min; TIDAL VOLUME 500 mL
[2021-09-12] MEDS: FENTANYL-0.9 % NACL/PF 100 ML IV PRN (03:29)
[2021-09-12] MEDS ORDERED: VANCOMYCIN LEVEL IV ONE (04:30)
[2021-09-12] MEDS ORDERED: magnesium 2GM in 50ml NS 50 ML IV PRN (04:40)
[2021-09-12] MEDS ORDERED: potassium Cl 20mEq/100mL bag 100 ML IV PRN (04:40)
[2021-09-12] MEDS ORDERED: magnesium 4gm in 100ml NS 100 ML IV PRN (04:40)
[2021-09-12] MEDS: vancomycin/NS 1 GM ADD-VANTAGE 250 ML IV SCH ×2 (06:22→16:38)
[2021-09-12] MEDS: famotidine/PF 10 mg/ml inj IV SCH ×2 (07:52→20:25)
[2021-09-12] MEDS: docusate sod 100mg capsule PO SCH ×2 (08:00→20:25)
[2021-09-12] MEDS: K and/or MAG REPLACEMENT MC SCH ×2 (08:00→20:00)
[2021-09-12] MEDS ORDERED: HYDROmorphone 1 mg/ml syringe IV PRN (14:30)
[2021-09-12] MEDS: piperacillin/tazo 3.375gm/50ml 50 ML IV SCH ×3 (16:00→16:30)
[2021-09-12] MEDS: sodium chloride 0.45% 1,000 ML IV SCH ×2 (16:38→20:26)
[2021-09-12] MEDS: enoxaparin 40mg/0.4ml syringe SQ SCH (16:38)
--- NOTE | 2021-09-12 17:36 | NUR ---
MD Dr Croft to see, requested PRANAV & galindo DC. Removed both. Pt tolerated well. Urinaly provided. Rates pain at 3-4 after IV Dilaudid.
[2021-09-12] MEDS: HYDROmorphone 1 mg/ml syringe IV PRN (17:44)
--- NOTE | 2021-09-12 17:45 | NUR ---
Pain med Dilaudid give about 1300 for reported pain of 5-6. I forgot to scan med at that time. CN aware.
[2021-09-12 21:36] LABS: BASOPHILS % (AUTO) 0.5 % (0-1); EOSINOPHILS % (AUTO) 0.5 % (0-6); HEMATOCRIT 30.4 % (42.0-52.0); HEMOGLOBIN 10.1 g/dl (14.0-17.9); LYMPHOCYTES # (AUTO) 0.6 X10'3 (1.1-4.8); LYMPHOCYTES % (AUTO) 8.6 % (21-51); MEAN CORPUSCULAR HEMOGLOBIN 31.8 PG (27.0-31.0); MEAN CORPUSCULAR HGB CONC 33.3 g/dL (33.0-36.5); MEAN CORPUSCULAR VOLUME 95.5 FL (78-98); MEAN PLATELET VOLUME 6.9 FL (7.4-10.4); MONOCYTES # (AUTO) 0.5 X10'3 (0-0.9); MONOCYTES % (AUTO) 7.8 % (2-12); NEUTROPHILS # (AUTO) 5.4 X10'3 (1.8-7.7); NEUTROPHILS % (AUTO) 82.6 % (42-75); PLATELET COUNT 202 X10'3 (140-440); RED BLOOD COUNT 3.18 X10'6 (4.70-6.10); RED CELL DISTRIBUTION WIDTH 15.2 % (11.5-14.5); WHITE BLOOD COUNT 6.6 X10'3 (4.5-11.0)
[2021-09-13] VITALS (18 sets, daily range): BP systolic 100–132; BP diastolic 54–85
[2021-09-13] MEDS: piperacillin/tazo 3.375gm/50ml 50 ML IV SCH ×4 (00:03→23:51)
[2021-09-13 04:04] LABS: BASOPHILS % (AUTO) 0.5 % (0-1); EOSINOPHILS # (AUTO) 0.1 X10'3 (0-0.9); EOSINOPHILS % (AUTO) 1.2 % (0-6); HEMATOCRIT 30.5 % (42.0-52.0); HEMOGLOBIN 10.2 g/dl (14.0-17.9); LYMPHOCYTES # (AUTO) 0.5 X10'3 (1.1-4.8); LYMPHOCYTES % (AUTO) 7.3 % (21-51); MEAN CORPUSCULAR HEMOGLOBIN 32.1 PG (27.0-31.0); MEAN CORPUSCULAR HGB CONC 33.6 g/dL (33.0-36.5); MEAN CORPUSCULAR VOLUME 95.5 FL (78-98); MEAN PLATELET VOLUME 6.8 FL (7.4-10.4); MONOCYTES # (AUTO) 0.6 X10'3 (0-0.9); NEUTROPHILS # (AUTO) 5.8 X10'3 (1.8-7.7); PLATELET COUNT 204 X10'3 (140-440); RED BLOOD COUNT 3.19 X10'6 (4.70-6.10); RED CELL DISTRIBUTION WIDTH 14.8 % (11.5-14.5)
[2021-09-13 04:08] LABS: APTT 32 SECONDS (22-32)
[2021-09-13 04:11] LABS: GLUCOSE 95 MG/DL (70-104); POTASSIUM 3.5 MMOL/L (3.5-5.1); SODIUM 137 MMOL/L (135-145)
[2021-09-13 04:12] LABS: ALANINE AMINOTRANSFERASE 13 U/L (12-78); ALBUMIN 3.2 G/DL (3.4-5.0); ALBUMIN/GLOBULIN RATIO 1.2 (1.1-1.5); ALKALINE PHOSPHATASE 31 IU/L (46-116); ANION GAP 5 (8-16); ASPARTATE AMINO TRANSFERASE 14 U/L (10-37); BILIRUBIN,TOTAL 0.7 MG/DL (0.1-1.0); BLOOD UREA NITROGEN 10 MG/DL (7-18); BUN/CREATININE RATIO 9.1 (5.4-32.0); CALCIUM 7.8 MG/DL (8.5-10.1); CHLORIDE 105 MMOL/L (99-107); TOTAL CARBON DIOXIDE 26.8 MMOL/L (24-32); TOTAL PROTEIN 5.8 G/DL (6.4-8.2); eGFR 67 ML/MIN
[2021-09-13 04:19] LABS: PHOSPHORUS 2.4 MG/DL (2.3-4.5); VANCOMYCIN,TROUGH 14.2 UG/ML (6.0-14.0)
[2021-09-13] MEDS: vancomycin/NS 1 GM ADD-VANTAGE 250 ML IV SCH (05:08)
[2021-09-13] MEDS: HYDROmorphone 1 mg/ml syringe IV PRN (05:25)
--- NOTE | 2021-09-13 06:30 | NUR ---
Patient in room ICU 2040. I have received report from Leni and had the opportunity to ask questions and assume patient care.
--- NOTE | 2021-09-13 06:39 | NUR ---
Problems reprioritized. Patient report given, questions answered & plan of care reviewed with ADRIAN VOGT.
[2021-09-13] MEDS: K and/or MAG REPLACEMENT MC SCH ×2 (07:01→20:00)
[2021-09-13] MEDS: famotidine/PF 10 mg/ml inj IV SCH ×2 (08:25→22:50)
[2021-09-13] MEDS: docusate sod 100mg capsule PO SCH ×2 (08:25→22:49)
[2021-09-13] MEDS: enoxaparin 40mg/0.4ml syringe SQ SCH (08:25)
[2021-09-13] MEDS: sodium chloride 0.45% 1,000 ML IV SCH ×2 (10:47→18:01)
--- NOTE | 2021-09-13 14:29 | NUR ---
Dr. Croft rounded on the patient. Wants to review wait before deciding what blood thinner to put patient is on, but wants to start plavix today. Pt is not nauseous or vomiting, so MD order clear liquid diet. Since pt has IV access, MD ordered central line removal.
[2021-09-13] MEDS: VANCOmycin 1250MG/NS 250ml Bag 250 ML IV SCH (14:52)
[2021-09-13] MEDS: clopidogrel 75mg tablet PO SCH (14:58)
--- NOTE | 2021-09-13 15:50 | NUR ---
Problems reprioritized. Patient report given, questions answered & plan of care reviewed with Cristina VOGT.
--- NOTE | 2021-09-13 15:50 | NUR ---
Patient in room ICU 2040. I have received report from Osman VOGT and had the opportunity to ask questions and assume patient care.
--- NOTE | 2021-09-13 18:10 | NUR ---
Patient in room ORTHO 4021. I have received report from Makayla VOGT and had the opportunity to ask questions and assume patient care. Addendum: 09/13/21 at 2008 by Kari Linda RN Amended: Links added.
--- NOTE | 2021-09-13 18:44 | NUR ---
Pt arrived to floor at 1645 via wheelchair. Assisted pt to bed. Wound vac started alarming that there was an air leak. Reinforced with more drape to repair leak. Unable to determine where leak is coming from. Resource RN Ashley assisted in more reinforcement of drape and wound vac continues to show there is a leak. Both sponges appear sucked down very tight and doesn't visibly appear to have a leak. Reported to noc TORIE Pierce of attempts to repair leak and that if it can't be repaired in 2 more hours, wound vac would have to be broken down most likely. Dr. Croft would need to be called.
--- NOTE | 2021-09-13 20:00 | NUR ---
Artificial left eye noted. Addendum: 09/14/21 at 0728 by Kari Linda RN Amended: Links added.
--- NOTE | 2021-09-13 20:15 | NUR ---
Difficulties with the wound vac to maintain seal-air leak detected by the wound vac alrms. Attempted to apply a new additional wound vac sealing dressing but the vac continued alarming displaying an air leak. Reported the incident to Dr. Croft who advised to contact nurse stern for further interventions. Lilo was contacted by charge nurse Lilo recommended breaking the wound vac down and to apply wet to dry drsg. Wound vac drsg discontinued without incident, moderate dry red discharge noted on the drsg, incision site without drainage, no redness, no swelling, and daniela intact at this time. Wet to dry drsg applied as ordered. Reminded pt. to call nurse with needs; pt. verbalized understanding. Call light within reach. Addendum: 09/14/21 at 0216 by Kari Linda RN Amended: Links added.
[2021-09-14] MEDS: VANCOmycin 1250MG/NS 250ml Bag 250 ML IV SCH ×2 (02:23→13:53)
--- NOTE | 2021-09-14 06:40 | NUR ---
Problems reprioritized. Patient report given, questions answered & plan of care reviewed with Janet VOGT. Addendum: 09/14/21 at 0715 by Kari Linda RN Amended: Links added.
--- NOTE | 2021-09-14 06:43 | NUR ---
Patient in room ORTHO 4021. I have received report from TORIE Pierce and had the opportunity to ask questions and assume patient care.
[2021-09-14 07:31] LABS: APTT 33 SECONDS (22-32)
[2021-09-14 07:38] LABS: ALANINE AMINOTRANSFERASE 14 U/L (12-78); ALBUMIN 2.7 G/DL (3.4-5.0); ALBUMIN/GLOBULIN RATIO 0.8 (1.1-1.5); ALKALINE PHOSPHATASE 35 IU/L (46-116); ANION GAP 10 (8-16); ASPARTATE AMINO TRANSFERASE 15 U/L (10-37); BILIRUBIN,TOTAL 0.8 MG/DL (0.1-1.0); BLOOD UREA NITROGEN 10 MG/DL (7-18); BUN/CREATININE RATIO 9.8 (5.4-32.0); CALCIUM 8.2 MG/DL (8.5-10.1); CHLORIDE 104 MMOL/L (99-107); CREATININE 1.02 MG/DL (0.60-1.10); GLUCOSE 93 MG/DL (70-104); POTASSIUM 3.2 MMOL/L (3.5-5.1); SODIUM 138 MMOL/L (135-145); TOTAL PROTEIN 6.1 G/DL (6.4-8.2); eGFR 73 ML/MIN
[2021-09-14] MEDS: K and/or MAG REPLACEMENT MC SCH ×3 (08:00→20:00)
[2021-09-14] MEDS: sodium chloride 0.45% 1,000 ML IV SCH ×2 (08:29→22:12)
[2021-09-14] MEDS: piperacillin/tazo 3.375gm/50ml 50 ML IV SCH ×3 (08:29→23:48)
[2021-09-14] MEDS: clopidogrel 75mg tablet PO SCH (08:30)
[2021-09-14] MEDS: famotidine/PF 10 mg/ml inj IV SCH (08:30)
[2021-09-14] MEDS: docusate sod 100mg capsule PO SCH ×2 (08:30→20:00)
[2021-09-14] MEDS: enoxaparin 40mg/0.4ml syringe SQ SCH ×2 (08:30→20:09)
[2021-09-14] MEDS ORDERED: potassium CL 10mEq/100ml bag 100 ML IV PRN (09:00)
[2021-09-14] MEDS ORDERED: magnesium 4gm in 100ml NS 100 ML IV PRN (09:00)
[2021-09-14] MEDS ORDERED: potassium Cl 20 mEq SR tablet PO PRN (09:00)
[2021-09-14] MEDS ORDERED: magnesium Cl slow-release 64mg tablet PO PRN (09:00)
[2021-09-14 10:00] VITALS: BP 115/74
[2021-09-14] MEDS ORDERED: iohexol 350 MG/ML 50ML vial IV ONE (10:02)
[2021-09-14] MEDS ORDERED: iohexol 350MG/ML 100ml bottle IV ONE (10:03)
--- NOTE | 2021-09-14 10:11 | NUR ---
Pt transported to CT via wheelchair
--- NOTE | 2021-09-14 10:41 | NUR ---
Pt back from CT scan
--- NOTE | 2021-09-14 11:37 | NUR ---
Reassessment: Pt advanced to clear liquids diet 09/13 PM though actually NPO pending CTA this AM per RN. Last PO 09/10 PM per EMR now 3 days no nutrition post-op. PAM d/w RN regarding advancement to heart healthy diet if MD agreeable post-op given functioning gut LBM 09/11 receiving routine colace. Pt has bilateral groin surgical wounds using singular vac pending WOC assessment today per RN. Will monitor for diet advancement and further nutrition intervention needs post-op. Recs: 1. advance to Heart Healthy diet 2. Monitor need for ONS pending initial PO trends post-op; consider Singh for wounds once cleared for PO 3. Routine bowel care 4. Weekly wts Addendum: 09/14/21 at [address] Amended: Links added.
--- NOTE | 2021-09-14 13:52 | NUR ---
PRESSURE ULCER EDUCATION: DEFINITION: A pressure ulcer is an area of skin that breaks down when you stay in one position too long. The constant pressure against the skin reduces the blood flow to that area and the affected tissue dies. CAUSES: "Being bedridden or in a wheelchair "Fragile skin "Having a chronic condition, such as diabetes or vascular disease "Inability to move certain parts of your body without assistance "Older age "Incontinence of urine or stool SYMPTOMS: "A reddened area that DOES NOT turn white when pressed on - this can be the beginning of a pressure ulcer "A blister, deep sore or a crater - these can be advanced pressure ulcers FIRST AID: "Relieve the pressure on this area "Keep the area clean and dry "Call your primary doctor if you see any of the above symptoms "DO NOT massage the area "DO NOT use a donut shaped or ring shaped pillow- these actually interfere with the blood flow and cause complications PREVENTION: "Check for pressure ulcers everyday "Change position at least every two hours to relieve pressure "Use items that help relieve pressure- pillows, sheepskin, foam padding, and powders. "Keep skin clean and dry "Eat healthy well balanced meals "Exercise daily IF YOU SEE ANY OF THESE SYMPTOMS WHILE IN THE HOSPITAL - TELL YOUR NURSE IMMEDIATELY. IF YOU SEE ANY OF THESE SYMPTOMS WHILE AT HOME OR HAVE ANY QUESTIONS OR CONCERNS ABOUT PRESSURE ULCERS - CALL YOUR PRIMARY DOCTOR IMMEDIATELY. Addendum: 09/14/21 at 1353 by Divine Powers LVN Amended: Links added.
[2021-09-14] MEDS: potassium Cl 20 mEq SR tablet PO PRN ×3 (13:53→23:49)
[2021-09-14 14:00] VITALS: BP 126/85
[2021-09-14 18:00] VITALS: BP 122/76
--- NOTE | 2021-09-14 18:41 | NUR ---
Problems reprioritized. Patient report given, questions answered & plan of care reviewed with TORIE Haskins.
--- NOTE | 2021-09-14 18:42 | NUR ---
Patient in room ORTHO 4021. I have received report from JAIDEN VOGT and had the opportunity to ask questions and assume patient care.
[2021-09-14] MEDS: famotidine 20mg tablet PO SCH (19:15)
[2021-09-14] MEDS: enoxaparin 30mg/0.3ml syringe SUBCUT SCH (19:16)
[2021-09-14 22:00] VITALS: BP 92/54
--- NOTE | 2021-09-14 22:40 | NUR ---
DR. GENEVIEVE ELIZALDE CALLED ME TO SAY HE HAD A CRITICAL FINDING ON A CT ANGIOGRAPHY OF ABDOMEN AND PELVIS ORDERED BY DR. HAYS... I CALLED DR. FERNANDEZ WHO WAS THE HOSPITALIST BEVEL FACE STONER AND POLISHER IN HOUSE. SHE LOOKED AT THE REPORT. I CALLED DR. LAURA BECAUSE HE WAS THE SURGEON BEVEL FACE STONER AND POLISHER. HE SAID "HE AND DR. HAYS WERE AWARE THAT THE PT. HAD A LEFT GRAFT OCCLUSION AND THE PT WAS TO HAVE IT RE-OPENED ON FRIDAY."
[2021-09-15] MEDS ORDERED: VANCOMYCIN LEVEL IV ONE (01:30)
[2021-09-15 02:00] VITALS: BP 93/57
[2021-09-15 03:51] LABS: BASOPHILS % (AUTO) 0.4 % (0-1); EOSINOPHILS # (AUTO) 0.3 X10'3 (0-0.9); HEMATOCRIT 30.1 % (42.0-52.0); HEMOGLOBIN 10.1 g/dl (14.0-17.9); LYMPHOCYTES # (AUTO) 0.7 X10'3 (1.1-4.8); LYMPHOCYTES % (AUTO) 10.4 % (21-51); MEAN CORPUSCULAR HEMOGLOBIN 31.6 PG (27.0-31.0); MEAN CORPUSCULAR HGB CONC 33.5 g/dL (33.0-36.5); MEAN CORPUSCULAR VOLUME 94.3 FL (78-98); MEAN PLATELET VOLUME 7.4 FL (7.4-10.4); MONOCYTES # (AUTO) 0.6 X10'3 (0-0.9); MONOCYTES % (AUTO) 9.2 % (2-12); NEUTROPHILS # (AUTO) 4.9 X10'3 (1.8-7.7); PLATELET COUNT 256 X10'3 (140-440); RED BLOOD COUNT 3.19 X10'6 (4.70-6.10); WHITE BLOOD COUNT 6.6 X10'3 (4.5-11.0)
[2021-09-15 03:55] LABS: ALANINE AMINOTRANSFERASE 15 U/L (12-78); ALBUMIN 2.4 G/DL (3.4-5.0); ALBUMIN/GLOBULIN RATIO 0.7 (1.1-1.5); ALKALINE PHOSPHATASE 30 IU/L (46-116); ANION GAP 12 (8-16); ASPARTATE AMINO TRANSFERASE 17 U/L (10-37); BILIRUBIN,TOTAL 0.8 MG/DL (0.1-1.0); BLOOD UREA NITROGEN 11 MG/DL (7-18); CALCIUM 7.4 MG/DL (8.5-10.1); CHLORIDE 105 MMOL/L (99-107); GLUCOSE 100 MG/DL (70-104); MAGNESIUM 2.3 MG/DL (1.5-2.4); PHOSPHORUS 1.7 MG/DL (2.3-4.5); POTASSIUM 3.7 MMOL/L (3.5-5.1); SODIUM 138 MMOL/L (135-145); TOTAL CARBON DIOXIDE 21.5 MMOL/L (24-32); TOTAL PROTEIN 5.8 G/DL (6.4-8.2); VANCOMYCIN,TROUGH 16.7 UG/ML (6.0-14.0); eGFR 75 ML/MIN
[2021-09-15] MEDS: VANCOmycin 1250MG/NS 250ml Bag 250 ML IV SCH ×2 (04:37→13:57)
[2021-09-15 06:00] VITALS: BP_SYST 123; BP_SYST 23; BP_DIAS 60
--- NOTE | 2021-09-15 06:46 | NUR ---
Problems reprioritized. Patient report given, questions answered & plan of care reviewed with JAIDEN VOGT. Addendum: 09/15/21 at 0651 by Divine Tesfaye RN GAVE VERBAL REPORT TO LIVIA VOGT NOT JAIDEN
--- NOTE | 2021-09-15 06:52 | NUR ---
Patient in room ORTHO 4021. I have received report from TORIE Haskins and had the opportunity to ask questions and assume patient care.
[2021-09-15] MEDS: piperacillin/tazo 3.375gm/50ml 50 ML IV SCH ×3 (07:49→23:55)
[2021-09-15] MEDS: famotidine 20mg tablet PO SCH ×2 (07:49→20:02)
[2021-09-15] MEDS: enoxaparin 30mg/0.3ml syringe SUBCUT SCH ×2 (07:49→20:02)
[2021-09-15] MEDS: docusate sod 100mg capsule PO SCH ×3 (07:49→18:48)
[2021-09-15] MEDS: clopidogrel 75mg tablet PO SCH (07:49)
[2021-09-15] MEDS: enoxaparin 40mg/0.4ml syringe SQ SCH ×2 (07:50→20:01)
[2021-09-15] MEDS: K and/or MAG REPLACEMENT MC SCH ×4 (08:00→18:47)
[2021-09-15 10:00] VITALS: BP 90/51
[2021-09-15] MEDS: sodium chloride 0.45% 1,000 ML IV SCH ×2 (12:12→21:37)
[2021-09-15 14:00] VITALS: BP 95/54
[2021-09-15 18:00] VITALS: BP 95/54
--- NOTE | 2021-09-15 18:36 | NUR ---
Problems reprioritized. Patient report given, questions answered & plan of care reviewed with TORIE Mike.
[2021-09-15 22:00] VITALS: BP 94/64
[2021-09-16] MEDS: sodium chloride 0.45% 1,000 ML IV SCH ×2 (00:24→20:15)
[2021-09-16] MEDS: VANCOmycin 1250MG/NS 250ml Bag 250 ML IV SCH ×2 (02:11→14:34)
[2021-09-16 06:06] LABS: GLUCOSE 86 MG/DL (70-104); POTASSIUM 3.2 MMOL/L (3.5-5.1); SODIUM 141 MMOL/L (135-145)
[2021-09-16 06:07] LABS: ALANINE AMINOTRANSFERASE 16 U/L (12-78); ALBUMIN 2.4 G/DL (3.4-5.0); ALBUMIN/GLOBULIN RATIO 0.8 (1.1-1.5); ALKALINE PHOSPHATASE 37 IU/L (46-116); ANION GAP 8 (8-16); ASPARTATE AMINO TRANSFERASE 17 U/L (10-37); BILIRUBIN,TOTAL 0.7 MG/DL (0.1-1.0); BLOOD UREA NITROGEN 7 MG/DL (7-18); BUN/CREATININE RATIO 6.9 (5.4-32.0); CALCIUM 7.5 MG/DL (8.5-10.1); CHLORIDE 108 MMOL/L (99-107); CREATININE 1.02 MG/DL (0.60-1.10); MAGNESIUM 2.2 MG/DL (1.5-2.4); PHOSPHORUS 2.1 MG/DL (2.3-4.5); TOTAL CARBON DIOXIDE 24.8 MMOL/L (24-32); TOTAL PROTEIN 5.5 G/DL (6.4-8.2); eGFR 73 ML/MIN
[2021-09-16 06:11] LABS: BASOPHILS % (AUTO) 0.6 % (0-1); EOSINOPHILS # (AUTO) 0.4 X10'3 (0-0.9); EOSINOPHILS % (AUTO) 8.8 % (0-6); HEMATOCRIT 28.6 % (42.0-52.0); HEMOGLOBIN 9.5 g/dl (14.0-17.9); LYMPHOCYTES # (AUTO) 0.7 X10'3 (1.1-4.8); LYMPHOCYTES % (AUTO) 13.1 % (21-51); MEAN CORPUSCULAR HEMOGLOBIN 31.6 PG (27.0-31.0); MEAN CORPUSCULAR HGB CONC 33.3 g/dL (33.0-36.5); MEAN CORPUSCULAR VOLUME 94.9 FL (78-98); MEAN PLATELET VOLUME 7.3 FL (7.4-10.4); MONOCYTES # (AUTO) 0.5 X10'3 (0-0.9); MONOCYTES % (AUTO) 9.7 % (2-12); NEUTROPHILS # (AUTO) 3.4 X10'3 (1.8-7.7); NEUTROPHILS % (AUTO) 67.8 % (42-75); PLATELET COUNT 276 X10'3 (140-440); RED BLOOD COUNT 3.01 X10'6 (4.70-6.10); RED CELL DISTRIBUTION WIDTH 15.1 % (11.5-14.5)
--- NOTE | 2021-09-16 06:22 | NUR ---
Problems reprioritized. Patient report given, questions answered & plan of care reviewed with TORIE Brewer.
[2021-09-16 07:00] VITALS: BP 80/45
[2021-09-16] MEDS: K and/or MAG REPLACEMENT MC SCH ×5 (07:42→20:00)
[2021-09-16] MEDS: docusate sod 100mg capsule PO SCH ×2 (07:42→20:00)
[2021-09-16] MEDS: famotidine 20mg tablet PO SCH ×2 (08:15→20:15)
[2021-09-16] MEDS: piperacillin/tazo 3.375gm/50ml 50 ML IV SCH ×2 (08:15→16:28)
[2021-09-16] MEDS: clopidogrel 75mg tablet PO SCH (08:16)
[2021-09-16] MEDS: potassium Cl 20 mEq SR tablet PO PRN ×3 (08:16→16:27)
[2021-09-16] MEDS: enoxaparin 30mg/0.3ml syringe SUBCUT SCH ×2 (08:17→20:15)
[2021-09-16] MEDS: enoxaparin 40mg/0.4ml syringe SQ SCH ×2 (08:18→20:15)
[2021-09-16 11:00] VITALS: BP 114/68
[2021-09-16 15:00] VITALS: BP_SYST 112; BP_SYST 89; BP_DIAS 59; BP_DIAS 66
--- NOTE | 2021-09-16 17:50 | NUR ---
Called Dr. Sol for order clarification for surgery tomorrow. NPO at midnight. Pt already on antibiotics, so currently no additional antibiotics for surgery. Hold AM Lovenox and AM Plavix. Per pharmacy, MD will have to re-order blood thinners post surgery. Consent will be reviewed and signed tomorrow with Dr. Croft. Patient will need a hibicleanse bath pre-op.
[2021-09-16 18:00] VITALS: BP 122/74
--- NOTE | 2021-09-16 18:18 | NUR ---
Problems reprioritized. Patient report given, questions answered & plan of care reviewed with Samanta VOGT.
--- NOTE | 2021-09-16 20:16 | NUR ---
Scanner was not working. Had to manually admin the 2000 Lovenox and Pepcid as well as fluids.
[2021-09-16 22:00] VITALS: BP 110/71
[2021-09-17] VITALS (22 sets, daily range): BP systolic 100–140; BP diastolic 53–77
[2021-09-17] MEDS: piperacillin/tazo 3.375gm/50ml 50 ML IV SCH ×3 (01:27→16:00)
[2021-09-17] MEDS: VANCOmycin 1250MG/NS 250ml Bag 250 ML IV SCH ×2 (01:47→14:40)
[2021-09-17] MEDS: potassium Cl 20 mEq SR tablet PO PRN (02:33)
[2021-09-17 06:48] LABS: BASOPHILS % (AUTO) 0.6 % (0-1); EOSINOPHILS # (AUTO) 0.4 X10'3 (0-0.9); EOSINOPHILS % (AUTO) 8.7 % (0-6); HEMATOCRIT 29.5 % (42.0-52.0); HEMOGLOBIN 9.8 g/dl (14.0-17.9); LYMPHOCYTES # (AUTO) 0.6 X10'3 (1.1-4.8); LYMPHOCYTES % (AUTO) 13.8 % (21-51); MEAN CORPUSCULAR HEMOGLOBIN 31.8 PG (27.0-31.0); MEAN CORPUSCULAR HGB CONC 33.1 g/dL (33.0-36.5); MEAN CORPUSCULAR VOLUME 95.8 FL (78-98); MEAN PLATELET VOLUME 7.2 FL (7.4-10.4); MONOCYTES # (AUTO) 0.5 X10'3 (0-0.9); MONOCYTES % (AUTO) 10.5 % (2-12); NEUTROPHILS # (AUTO) 3.1 X10'3 (1.8-7.7); NEUTROPHILS % (AUTO) 66.4 % (42-75); PLATELET COUNT 301 X10'3 (140-440); RED BLOOD COUNT 3.08 X10'6 (4.70-6.10); RED CELL DISTRIBUTION WIDTH 15.2 % (11.5-14.5); WHITE BLOOD COUNT 4.7 X10'3 (4.5-11.0)
--- NOTE | 2021-09-17 06:53 | NUR ---
Patient in room ORTHO 4021b. I have received report from Mary Lou VOGT and had the opportunity to ask questions and assume patient care.
[2021-09-17 07:36] LABS: ALANINE AMINOTRANSFERASE 18 U/L (12-78); ALBUMIN 2.5 G/DL (3.4-5.0); ALBUMIN/GLOBULIN RATIO 0.8 (1.1-1.5); ALKALINE PHOSPHATASE 34 IU/L (46-116); ANION GAP 9 (8-16); ASPARTATE AMINO TRANSFERASE 15 U/L (10-37); BILIRUBIN,TOTAL 0.6 MG/DL (0.1-1.0); BLOOD UREA NITROGEN 4 MG/DL (7-18); BUN/CREATININE RATIO 3.8 (5.4-32.0); CALCIUM 7.7 MG/DL (8.5-10.1); CHLORIDE 108 MMOL/L (99-107); CREATININE 1.04 MG/DL (0.60-1.10); GLUCOSE 84 MG/DL (70-104); PHOSPHORUS 2.3 MG/DL (2.3-4.5); POTASSIUM 3.9 MMOL/L (3.5-5.1); SODIUM 140 MMOL/L (135-145); TOTAL CARBON DIOXIDE 23.5 MMOL/L (24-32); TOTAL PROTEIN 5.8 G/DL (6.4-8.2); eGFR 72 ML/MIN
[2021-09-17] MEDS: enoxaparin 30mg/0.3ml syringe SUBCUT SCH (08:00)
[2021-09-17] MEDS: clopidogrel 75mg tablet PO SCH (08:00)
[2021-09-17] MEDS: enoxaparin 40mg/0.4ml syringe SQ SCH (08:00)
[2021-09-17] MEDS: K and/or MAG REPLACEMENT MC SCH ×4 (08:09→20:00)
[2021-09-17] MEDS: famotidine 20mg tablet PO SCH ×2 (08:39→21:29)
[2021-09-17] MEDS: docusate sod 100mg capsule PO SCH ×2 (08:39→21:29)
--- NOTE | 2021-09-17 10:54 | NUR ---
F/u 09/17: Pt returning to OR this AM for attempt at recanalization of the left limb of the graft per EMR. Groin wound vac removed per MD note. Pt last significant nutrition intake 09/09 now 8 days on and off NPO vs clear liquids not meeting nutrition needs. LBM 09/16 receiving routine colace. PAM d/w RN regarding diet advancement post-op given functional gut; per RN pt to transfer to ICU care post-op today. Given 8 days little to no nutrition intake and mild weakness pt meets non-severe malnutrition criteria; MD notified. IF pt to remain NPO post-op would benefit from EN given timeframe without nutrition and functional gut. Will monitor for further nutrition intervention needs this admit. Recs: 1. advance to Heart Healthy diet 2. IF to remain NPO post-op; consider EN given 8 days little/no nutrition this admit and functional gut 3. Monitor need for ONS once diet to advance; consider Singh 4. Routine bowel care 5. Weekly wts Addendum: 09/17/21 at [address] Amended: Links added.
--- NOTE | 2021-09-17 13:23 | NUR ---
Checked belonging again prior to OR and transfer to ICU post surgery. Belongings list states $66, not in zip up wallet. Addendum: 09/17/21 at 1325 by Fang Santiago RN Amended: Links added.
--- NOTE | 2021-09-17 15:06 | NUR ---
Patient picked up to go to the OR
[2021-09-17] MEDS ORDERED: heparin 10,000 units/1 ML INJ ONE (15:09)
[2021-09-17] MEDS ORDERED: LIDOcaine 1% (10mg/ml) 2ml vial ONE (15:40)
[2021-09-17] MEDS ORDERED: propofol inj 20 ML IV ONE (15:49)
[2021-09-17] MEDS ORDERED: fentaNYL/PF 50MCG/1 ML 2ML syringe ONE ×2 (15:49→18:06)
[2021-09-17] MEDS ORDERED: midazolam 1 mg/ML 2ml injection ONE (15:49)
[2021-09-17] MEDS ORDERED: LIDOcaine 2% (20mg/ml) 5ml vial ONE (15:50)
[2021-09-17] MEDS ORDERED: rocuronium 10mg/ml inj IV ONE ×2 (15:51→16:08)
[2021-09-17] MEDS ORDERED: ondansetron/PF 4mg/2ml inj ONE ×2 (15:52→16:08)
[2021-09-17] MEDS ORDERED: ringers solution, lacted 1,000 ML IV SCH (15:55)
[2021-09-17] MEDS ORDERED: hydrALAZINE 20mg/ml inj. IV PRN (15:55)
[2021-09-17] MEDS ORDERED: fentaNYL/PF 50MCG/1 ML 2ML syringe IV PRN ×2 (15:55)
[2021-09-17] MEDS ORDERED: morphine 2 MG/ML inj. syringe IV PRN (15:55)
[2021-09-17] MEDS ORDERED: labetalol 20mg/4ml (5mg/ml) syringe IV PRN (15:55)
[2021-09-17] MEDS ORDERED: morphine 4 MG/ML inj SYRINge IV PRN (15:55)
[2021-09-17] MEDS ORDERED: ondansetron/PF 4mg/2ml inj IV PRN (15:55)
[2021-09-17] MEDS ORDERED: neostigmine methylsulfate 1 MG/ML 10ml vial ONE (16:08)
[2021-09-17] MEDS ORDERED: sevoflurane 250ml liquid IH ONE (16:08)
[2021-09-17] MEDS ORDERED: albumin (Human) 5% 250ml 250 ML IV ONE ×5 (16:24→19:05)
[2021-09-17] MEDS ORDERED: dexamethasone sod phosphate 4mg/ml inj. ONE (16:44)
[2021-09-17] MEDS ORDERED: heparin 1,000unit/ml 10ml vial 10 ML ONE (16:46)
[2021-09-17] MEDS ORDERED: glycopyrrolate 0.2mg/ml inj ONE (17:54)
[2021-09-17] MEDS ORDERED: naloxone 0.4 mg/ml inj IV PRN (18:20)
--- NOTE | 2021-09-17 18:25 | NUR ---
Received from OR via HOSPITAL BED , accompanied by Anesthesiologist DR SPEARS and report given by Anesthesiolgist. PT PRESENTS WITH ART LINE IN RIGHT WRIST, PIV 18G LEFT AC, DIXON CATHETER WITH 400MLS OUT OF OR, DISTAL PULSES WITH DOPPLER AND MARKED, NEROLIGOCAL INTACT, PUSH PULLD EQUAL OVERLOCK SEWING MACHINE OPERATOR, SMILES AND WINKS. VSS. Addendum: 09/17/21 at 1852 by Deepti Pérez RN, RN Amended: Links added.
[2021-09-17 18:40] LABS: APTT 111 SECONDS (22-32)
[2021-09-17 18:40] LABS: ISTAT ANION GAP 9 (8-12); ISTAT BUN 4 mg/dL (7-18); ISTAT CL 107 mmol/L (99-107); ISTAT CREATININE 0.8 mg/dL (0.8-1.3); ISTAT GLUCOSE 95 mg/dL (70-105); ISTAT HGB 8.8 g/dl (14.0-18.0); ISTAT Hct 26 %PCV (42-52); ISTAT IONIZED CALCIUM 1.14 mmol/L (1.03-1.32); ISTAT K 4.1 mmol/L (3.5-5.1); ISTAT NA 138 mmol/L (135-145); ISTAT TOTAL CO2 22 mmol/L (24-32); ISTAT eGFR > 90 ML/MIN
--- NOTE | 2021-09-17 19:13 | NUR ---
DR HAYS NOTIFIED OF PTT 111, HEMOGLOBIN 8.8. BP 120/74. ORDERS RECEIVED FOR ALBUMIN 500MLS 5%, ALBUMIN GIVEN. Addendum: 09/17/21 at 1915 by Deepti Pérez RN, RN Amended: Links added.
--- NOTE | 2021-09-17 19:51 | NUR ---
DR HAYS NOTIFIED, PT HAD 2 EPISODES OF A-FIB WITH RATE UP TO 140'S. PT MAG LEVEL WITHIN NORMAL LIMITS. PER DR AHYS OK TO START THE LOVENOX. Addendum: 09/17/21 at 1952 by Deepti Pérez RN, RN Amended: Links added.
[2021-09-17] MEDS: sodium chloride 0.45% 1,000 ML IV SCH ×2 (20:41→21:32)
--- NOTE | 2021-09-17 20:45 | NUR ---
Report called to receiving nurse YAZMIN VOGT. Transferred via HOSPITAL BED WITH MONITOR TO ROOM 2014 WHERE YAZMIN VOGT WAS WAITING FOR PT. BED IN LOW LOCKED POSITION. THREE PT BELONGINGS OSCAR AND GIANFRANCO TAKEN TO ROOM 2013. Special Issues communicated to receiving nurse. Addendum: 09/17/21 at 2055 by Deepti Pérez RN RN Amended: Links added.
--- NOTE | 2021-09-17 20:48 | NUR ---
I have received report from Deepti magazine worker and had the opportunity to ask questions. Room is set up and ready for PT arrival.
--- NOTE | 2021-09-17 21:00 | NUR ---
PT arrived to room vis ICU bed accompanied by secretary bookkeeper. PT placed on bedside monitor. PT is in SR with HR in 70's. Recieivng 2L O2 to NC and tolerating well, Or sat >95%. Pt has A-Line to RT wrist which is being transduced and line has been zeroed. PT has 18g PIV to RT AC with IVF infusing per MD orders. PT turned for skin check and OR bedding removed. PT has medley in place draining to gravity. PT has Prevena W[place] dressings to Bilat groins connected to large WV that is running @125mmHg. PT has island drsg to Left calf, minimal drainage noted. Bed is locked and low. Call light is within reach. Will continue to monitor.
[2021-09-17] MEDS ORDERED: HYDROmorphone inj. 0.5 MG/0.5 ML DISP.SYRIN IV PRN (21:05)
--- NOTE | 2021-09-17 21:08 | NUR ---
Dr Croft called d/t PT not having pain meds ordered beyond recovery room. Orders received to continue Holland that was on hold as well as 0.5 IVP Dilaudid Q4 PRN. Lovenox order was questioned d/t being Post op, Order received to give but wait until midnight. PT was previously followed by skates operator, nursing asked Dr. Croft if he wanted them to follow again and he stated yes. Orders placed in computer and will continue to monitor.
--- NOTE | 2021-09-17 21:20 | NUR ---
Pharmacy called d/t 1600 dose of Zosyn being missed d/t PT being in Surgery. Per Pharmacist just give the midnight dose beings its this late. Will give Zosyn as soon as available.
[2021-09-17] MEDS: HYDROcodone/acetaminophen 5mg/325mg tablet PO PRN (22:03)
[2021-09-18] VITALS (16 sets, daily range): BP systolic 96–112; BP diastolic 50–72
[2021-09-18] MEDS ORDERED: enoxaparin 30mg/0.3ml syringe SUBCUT SCH
[2021-09-18] MEDS ORDERED: enoxaparin 40mg/0.4ml syringe SQ SCH
[2021-09-18] MEDS: piperacillin/tazo 3.375gm/50ml 50 ML IV SCH ×4 (00:19→21:00)
[2021-09-18] MEDS: VANCOmycin 1250MG/NS 250ml Bag 250 ML IV SCH (02:20)
[2021-09-18 02:39] LABS: BASOPHILS % (AUTO) 0.3 % (0-1); EOSINOPHILS % (AUTO) 0.1 % (0-6); HEMATOCRIT 23.8 % (42.0-52.0); HEMOGLOBIN 8.1 g/dl (14.0-17.9); LYMPHOCYTES # (AUTO) 0.4 X10'3 (1.1-4.8); LYMPHOCYTES % (AUTO) 8.1 % (21-51); MEAN CORPUSCULAR HEMOGLOBIN 32.4 PG (27.0-31.0); MEAN CORPUSCULAR VOLUME 95.3 FL (78-98); MEAN PLATELET VOLUME 6.8 FL (7.4-10.4); MONOCYTES # (AUTO) 0.2 X10'3 (0-0.9); NEUTROPHILS # (AUTO) 4.3 X10'3 (1.8-7.7); NEUTROPHILS % (AUTO) 87.5 % (42-75); PLATELET COUNT 280 X10'3 (140-440); RED BLOOD COUNT 2.49 X10'6 (4.70-6.10); RED CELL DISTRIBUTION WIDTH 15.1 % (11.5-14.5); WHITE BLOOD COUNT 4.9 X10'3 (4.5-11.0)
[2021-09-18 02:56] LABS: ALANINE AMINOTRANSFERASE 15 U/L (12-78); ALBUMIN 2.9 G/DL (3.4-5.0); ALBUMIN/GLOBULIN RATIO 1.1 (1.1-1.5); ALKALINE PHOSPHATASE 28 IU/L (46-116); ANION GAP 9 (8-16); ASPARTATE AMINO TRANSFERASE 12 U/L (10-37); BILIRUBIN,TOTAL 0.5 MG/DL (0.1-1.0); BLOOD UREA NITROGEN 8 MG/DL (7-18); BUN/CREATININE RATIO 8.9 (5.4-32.0); CALCIUM 7.7 MG/DL (8.5-10.1); CHLORIDE 107 MMOL/L (99-107); GLUCOSE 100 MG/DL (70-104); PHOSPHORUS 3.9 MG/DL (2.3-4.5); SODIUM 138 MMOL/L (135-145); TOTAL CARBON DIOXIDE 22.4 MMOL/L (24-32); TOTAL PROTEIN 5.6 G/DL (6.4-8.2); eGFR 85 ML/MIN
--- NOTE | 2021-09-18 06:30 | NUR ---
Patient in room CICU 2013. I have received report from Crystal VOGT and had the opportunity to ask questions and assume patient care.
--- NOTE | 2021-09-18 06:31 | NUR ---
Problems reprioritized. Patient report given, questions answered & plan of care reviewed with Joel VOGT.
[2021-09-18] MEDS: famotidine 20mg tablet PO SCH ×2 (07:51→20:10)
[2021-09-18] MEDS: K and/or MAG REPLACEMENT MC SCH ×3 (07:51→20:00)
[2021-09-18] MEDS: docusate sod 100mg capsule PO SCH ×2 (07:51→20:10)
[2021-09-18] MEDS: clopidogrel 75mg tablet PO SCH (07:51)
[2021-09-18] MEDS ORDERED: NICOTINE POLACRILEX 2 MG LOZENGE BC PRN (11:20)
[2021-09-18] MEDS ORDERED: IODIXANOL 320 MG/ML INFUS..BTL 50ML IV ONE (12:20)
[2021-09-18] MEDS ORDERED: IODIXANOL 320 MG/ML INFUS..BTL 100ML IV ONE (12:20)
--- NOTE | 2021-09-18 13:57 | NUR ---
CT Trip Dr. Croft to see pt, discussed plan of care & orders received. Can transfer to floor post CTA with run-off. Addendum: 09/18/21 at 1619 by Joel Duran RN Pt tolerated CT well. IV at rt a/c infiltrated and was d/c w/cath tip in tact.
--- NOTE | 2021-09-18 16:19 | NUR ---
Urine Cath Urine catheter was removed without difficulty. Pt voided after removal, clear yellow urine. No c/o pain unless his fee are touched.
--- NOTE | 2021-09-18 17:24 | NUR ---
Problems reprioritized. Patient report given, questions answered & plan of care reviewed with Deepali VOGT Ortho. Moved pt to bed with slide board, rolled and removed old bedding, allowed her to check pts back. Pt positioned to comfort.
--- NOTE | 2021-09-18 17:30 | NUR ---
Agree with Joel Palafox RN note. Patient position for comfort. Denies needs at this time.
[2021-09-18] MEDS ORDERED: apixaban 5mg tablet PO SCH (20:00)
[2021-09-18] MEDS: sodium chloride 0.45% 1,000 ML IV SCH ×2 (20:05→20:13)
[2021-09-18] MEDS: HYDROcodone/acetaminophen 5mg/325mg tablet PO PRN (21:38)
[2021-09-19] VITALS (15 sets, daily range): BP systolic 83–130; BP diastolic 47–74
[2021-09-19] MEDS: VANCOmycin 1250MG/NS 250ml Bag 250 ML IV SCH (01:05)
[2021-09-19] MEDS: piperacillin/tazo 3.375gm/50ml 50 ML IV SCH ×3 (05:06→21:05)
[2021-09-19 06:35] LABS: BASOPHILS % (AUTO) 0.3 % (0-1); EOSINOPHILS # (AUTO) 0.2 X10'3 (0-0.9); HEMATOCRIT 26.6 % (42.0-52.0); LYMPHOCYTES # (AUTO) 0.6 X10'3 (1.1-4.8); LYMPHOCYTES % (AUTO) 9.2 % (21-51); MEAN CORPUSCULAR HEMOGLOBIN 32.2 PG (27.0-31.0); MEAN CORPUSCULAR HGB CONC 33.8 g/dL (33.0-36.5); MEAN CORPUSCULAR VOLUME 95.3 FL (78-98); MONOCYTES # (AUTO) 0.5 X10'3 (0-0.9); MONOCYTES % (AUTO) 8.3 % (2-12); NEUTROPHILS # (AUTO) 4.8 X10'3 (1.8-7.7); NEUTROPHILS % (AUTO) 78.2 % (42-75); PLATELET COUNT 364 X10'3 (140-440); RED BLOOD COUNT 2.79 X10'6 (4.70-6.10); RED CELL DISTRIBUTION WIDTH 15.2 % (11.5-14.5); WHITE BLOOD COUNT 6.1 X10'3 (4.5-11.0)
[2021-09-19 06:53] LABS: ALANINE AMINOTRANSFERASE 19 U/L (12-78); ALBUMIN 2.9 G/DL (3.4-5.0); ALBUMIN/GLOBULIN RATIO 0.9 (1.1-1.5); ALKALINE PHOSPHATASE 31 IU/L (46-116); ANION GAP 6 (8-16); ASPARTATE AMINO TRANSFERASE 15 U/L (10-37); BILIRUBIN,TOTAL 0.5 MG/DL (0.1-1.0); BLOOD UREA NITROGEN 7 MG/DL (7-18); BUN/CREATININE RATIO 6.7 (5.4-32.0); CALCIUM 8.2 MG/DL (8.5-10.1); CHLORIDE 106 MMOL/L (99-107); CREATININE 1.04 MG/DL (0.60-1.10); GLUCOSE 97 MG/DL (70-104); MAGNESIUM 1.9 MG/DL (1.5-2.4); PHOSPHORUS 2.9 MG/DL (2.3-4.5); POTASSIUM 3.6 MMOL/L (3.5-5.1); SODIUM 137 MMOL/L (135-145); TOTAL CARBON DIOXIDE 24.9 MMOL/L (24-32); eGFR 72 ML/MIN
[2021-09-19] MEDS: sodium chloride 0.45% 1,000 ML IV SCH ×2 (07:59→19:59)
[2021-09-19] MEDS: clopidogrel 75mg tablet PO SCH (08:00)
[2021-09-19] MEDS: apixaban 5mg tablet PO SCH ×2 (08:00→20:24)
[2021-09-19] MEDS: K and/or MAG REPLACEMENT MC SCH ×2 (08:00→20:00)
--- NOTE | 2021-09-19 08:12 | NUR ---
Call to IR, hold plavix & eliquis at this time. IR will call if that changes. Patient is NPO.
[2021-09-19] MEDS: docusate sod 100mg capsule PO SCH ×2 (08:17→20:24)
[2021-09-19] MEDS: famotidine 20mg tablet PO SCH ×2 (08:17→20:24)
[2021-09-19 08:56] LABS: APTT 29 SECONDS (22-32)
--- NOTE | 2021-09-19 12:00 | NUR ---
I Courtney RN agree with Deepali Armstrong assessment
[2021-09-19] MEDS ORDERED: fentaNYL/PF 50MCG/1 ML 2ML syringe ONE ×3 (13:51→16:38)
[2021-09-19] MEDS ORDERED: LIDOCAINE 1% w/preservative (10 MG/ML) inj. 10mL VIAL ONE (13:51)
[2021-09-19] MEDS ORDERED: midazolam 1 mg/ML 2ml injection ONE ×2 (13:51→15:00)
[2021-09-19] MEDS ORDERED: iohexol 300mg/ml 100ml inj. ONE (13:51)
[2021-09-19] MEDS ORDERED: heparin 1,000 UNITS/NS 500ml 500 ML ONE (13:51)
--- NOTE | 2021-09-19 15:24 | NUR ---
Documentation reviewed by Clinical Inpatient Auditor.
[2021-09-19] MEDS ORDERED: heparin 10,000 units/1 ML INJ ONE (15:49)
--- NOTE | 2021-09-19 16:01 | NUR ---
report given to Noe HENRIQUEZ RN
[2021-09-19] MEDS ORDERED: ketamine 50mg/5ml syringe ONE ×2 (16:40)
--- NOTE | 2021-09-19 16:41 | NUR ---
Report received at bedside from IR RN. Pt stable, VVs obtained and Fem line transduced. Pt was here for 15min before OR came to take the pt. Pt was stable entire time.
[2021-09-19] MEDS ORDERED: ceFOXitin 1000 MG inj ONE (17:14)
[2021-09-19] MEDS ORDERED: rocuronium 10mg/ml inj IV ONE (17:14)
[2021-09-19] MEDS ORDERED: LIDOcaine 2% (20mg/ml) 5ml vial ONE (17:14)
[2021-09-19] MEDS ORDERED: sugammadex 200mg/2ml injection IV ONE (17:15)
--- NOTE | 2021-09-19 17:24 | NUR ---
Received from OR via BED, accompanied by Anesthesiologist DR GODDARD and report given by Anesthesiologist. PT DROWSY, DENIES PAIN, BILAT GROINS W/PROVENA WOUND VAC TO LCS 125MMHG, SMALL LEAK NOTED, REINFORCED W/NGHIA RICHARD, LEAK NO LONGER DETECTED. FERNANDO LE'S PULSES REMAIN DOPPLER QUALITY. Addendum: 09/19/21 at 1806 by Mariel Benavides RN Amended: Links added.
--- NOTE | 2021-09-19 18:44 | NUR ---
Report called to receiving nurse. Transferred via BED ON CM, NO Belongings. RECEIVING RN AT BEDSIDE TO RECIEVE PT, NO CHANGE TO [facility] SITES. CALL LIGHT GIVEN, PT ORIENTED TO SITUATION. Special Issues communicated to receiving nurse. YES. Addendum: 09/19/21 at 1853 by Mariel Benavides RN Amended: Links added.
--- NOTE | 2021-09-19 23:46 | NUR ---
Pt has had soft BP since receiving patient. Both femoral surgical wounds look the same with the left side having a slight hematoma. Pulses are palpable via doppler.
[2021-09-20] VITALS (24 sets, daily range): BP systolic 73–116; BP diastolic 46–71
[2021-09-20 00:51] LABS: BASOPHILS % (AUTO) 0.5 % (0-1); EOSINOPHILS # (AUTO) 0.3 X10'3 (0-0.9); EOSINOPHILS % (AUTO) 4.9 % (0-6); HEMOGLOBIN 7.5 g/dl (14.0-17.9); LYMPHOCYTES # (AUTO) 0.6 X10'3 (1.1-4.8); LYMPHOCYTES % (AUTO) 12.1 % (21-51); MEAN CORPUSCULAR HEMOGLOBIN 32.8 PG (27.0-31.0); MEAN CORPUSCULAR HGB CONC 34.2 g/dL (33.0-36.5); MEAN PLATELET VOLUME 6.7 FL (7.4-10.4); MONOCYTES # (AUTO) 0.4 X10'3 (0-0.9); MONOCYTES % (AUTO) 7.1 % (2-12); NEUTROPHILS # (AUTO) 3.9 X10'3 (1.8-7.7); NEUTROPHILS % (AUTO) 75.4 % (42-75); PLATELET COUNT 320 X10'3 (140-440); RED BLOOD COUNT 2.28 X10'6 (4.70-6.10); RED CELL DISTRIBUTION WIDTH 15.5 % (11.5-14.5); WHITE BLOOD COUNT 5.2 X10'3 (4.5-11.0)
[2021-09-20 01:04] LABS: HEMATOCRIT 21.9 % (42.0-52.0)
[2021-09-20 01:06] LABS: ALANINE AMINOTRANSFERASE 17 U/L (12-78); ALBUMIN 2.7 G/DL (3.4-5.0); ALBUMIN/GLOBULIN RATIO 0.9 (1.1-1.5); ALKALINE PHOSPHATASE 29 IU/L (46-116); ANION GAP 8 (8-16); ASPARTATE AMINO TRANSFERASE 12 U/L (10-37); BILIRUBIN,TOTAL 0.4 MG/DL (0.1-1.0); BLOOD UREA NITROGEN 9 MG/DL (7-18); BUN/CREATININE RATIO 8.2 (5.4-32.0); CALCIUM 7.4 MG/DL (8.5-10.1); CHLORIDE 107 MMOL/L (99-107); GLUCOSE 91 MG/DL (70-104); MAGNESIUM 1.8 MG/DL (1.5-2.4); PHOSPHORUS 3.8 MG/DL (2.3-4.5); POTASSIUM 3.5 MMOL/L (3.5-5.1); SODIUM 140 MMOL/L (135-145); TOTAL CARBON DIOXIDE 25.5 MMOL/L (24-32); TOTAL PROTEIN 5.6 G/DL (6.4-8.2); eGFR 67 ML/MIN
[2021-09-20] MEDS ORDERED: VANCOMYCIN LEVEL IV ONE (01:30)
[2021-09-20] MEDS: piperacillin/tazo 3.375gm/50ml 50 ML IV SCH ×3 (05:00→20:32)
--- NOTE | 2021-09-20 05:55 | NUR ---
Two units of PRBC's have been infused d/t H&H drop.
[2021-09-20] MEDS: famotidine 20mg tablet PO SCH ×2 (07:22→20:32)
[2021-09-20] MEDS: apixaban 5mg tablet PO SCH ×2 (07:22→20:32)
[2021-09-20] MEDS: clopidogrel 75mg tablet PO SCH (07:22)
[2021-09-20] MEDS: docusate sod 100mg capsule PO SCH ×2 (07:22→20:30)
[2021-09-20] MEDS: sodium chloride 0.45% 1,000 ML IV SCH ×2 (07:31→19:17)
[2021-09-20] MEDS: K and/or MAG REPLACEMENT MC SCH ×2 (08:00→20:00)
--- NOTE | 2021-09-20 11:25 | NUR ---
F/u 09/20: Pt advanced to regular diet this AM initial PO pending documentation following past 10 days NPO vs liquid meals not meeting needs. Pt seen by RD at bedside for verbal high protein ed; pt reports baseline appetite at this time is agreeable to strawberry-banana singh smoothie BIDLD; MD notified. Pt reports no dentures but no issues chewing/swallowing at this time, no food allergies, requests sherbet BIDLD; dietary notified. RD encouraged pt to contact dietitian if further nutrition/meal questions/concerns this admit. LBM 09/16 w/ smears yesterday receiving routine colace per EMR. Will monitor for PO trends and further ONS needs this admit. Recs: 1. continue to regular diet; lipid panel WNL 2. Singh smoothie BIDLD for wound healing; pending MD verification in EMR 3. Monitor for further ONS needs pending PO trends 4. monitor for signs of refeeding w/ PO given prolonged inadequate diet vs NPO past 10 days 5. Routine bowel care 6. Weekly wts Addendum: 09/20/21 at [address] Amended: Links added.
[2021-09-20 11:34] LABS: HEMATOCRIT 31.8 % (42.0-52.0); HEMOGLOBIN 11.1 g/dl (14.0-17.9); MEAN CORPUSCULAR HEMOGLOBIN 32.1 PG (27.0-31.0); MEAN CORPUSCULAR HGB CONC 34.9 g/dL (33.0-36.5); MEAN CORPUSCULAR VOLUME 92.2 FL (78-98); MEAN PLATELET VOLUME 6.8 FL (7.4-10.4); PLATELET COUNT 345 X10'3 (140-440); RED BLOOD COUNT 3.45 X10'6 (4.70-6.10); RED CELL DISTRIBUTION WIDTH 15.4 % (11.5-14.5); WHITE BLOOD COUNT 7.2 X10'3 (4.5-11.0)
[2021-09-20] MEDS: JUVEN Smoothie Arginine/Glut./Ca2+Bmb (Juven 19.3pkt) 240ml cup PO SCH ×2 (12:30→17:30)
--- NOTE | 2021-09-20 14:48 | NUR ---
Received report from TORIE Haskins in CICU
--- NOTE | 2021-09-20 15:30 | NUR ---
[id number] Pt a/ox4, VSS, BP slightly soft. Incision to left medial leg CDI, daniela in place. Dressing to medial chest with small drianage. Wound vac in place, no leakage noted. IV fluids and Zosyn infusing as ordered. Pt diet advanced to General, pt tolerating well, consumed 75% of lunch. Using urinal at bedside with great urine output. Tele: NSR. Pedal pulses with doppler. Pt transferred to Ortho floor at 1400. All personal belongings taken with patient to Room 4015.
--- NOTE | 2021-09-20 18:41 | NUR ---
Report given to Cee VOGT and Keara ZAPATAN
[2021-09-21 02:00] VITALS: BP 107/66
[2021-09-21] MEDS: piperacillin/tazo 3.375gm/50ml 50 ML IV SCH ×3 (05:09→20:00)
--- NOTE | 2021-09-21 06:02 | NUR ---
Problems reprioritized. Patient report given, questions answered & plan of care reviewed with TORIE Valdez.
--- NOTE | 2021-09-21 06:23 | NUR ---
Received report from TIERA Sarah and TORIE Mike
[2021-09-21 06:24] VITALS: BP 98/67
[2021-09-21] MEDS: sodium chloride 0.45% 1,000 ML IV SCH ×2 (07:03→18:49)
[2021-09-21] MEDS: docusate sod 100mg capsule PO SCH ×2 (07:11→20:00)
[2021-09-21] MEDS: clopidogrel 75mg tablet PO SCH (07:11)
[2021-09-21] MEDS: famotidine 20mg tablet PO SCH ×2 (07:11→20:00)
[2021-09-21] MEDS: apixaban 5mg tablet PO SCH ×2 (07:11→20:00)
[2021-09-21] MEDS: K and/or MAG REPLACEMENT MC SCH ×3 (08:00→18:39)
--- NOTE | 2021-09-21 09:41 | NUR ---
Paged PT per hospitalist request to work on stairs.
[2021-09-21 09:44] LABS: BASOPHILS % (AUTO) 0.3 % (0-1); EOSINOPHILS # (AUTO) 0.3 X10'3 (0-0.9); EOSINOPHILS % (AUTO) 3.9 % (0-6); HEMATOCRIT 33.6 % (42.0-52.0); HEMOGLOBIN 11.3 g/dl (14.0-17.9); LYMPHOCYTES # (AUTO) 0.5 X10'3 (1.1-4.8); LYMPHOCYTES % (AUTO) 7.3 % (21-51); MEAN CORPUSCULAR HGB CONC 33.8 g/dL (33.0-36.5); MEAN CORPUSCULAR VOLUME 94.7 FL (78-98); MEAN PLATELET VOLUME 7.1 FL (7.4-10.4); MONOCYTES # (AUTO) 0.4 X10'3 (0-0.9); MONOCYTES % (AUTO) 4.7 % (2-12); NEUTROPHILS # (AUTO) 6.3 X10'3 (1.8-7.7); NEUTROPHILS % (AUTO) 83.8 % (42-75); PLATELET COUNT 431 X10'3 (140-440); RED BLOOD COUNT 3.54 X10'6 (4.70-6.10); RED CELL DISTRIBUTION WIDTH 15.5 % (11.5-14.5); WHITE BLOOD COUNT 7.5 X10'3 (4.5-11.0)
[2021-09-21 09:56] LABS: ALANINE AMINOTRANSFERASE 22 U/L (12-78); ALBUMIN/GLOBULIN RATIO 0.8 (1.1-1.5); ALKALINE PHOSPHATASE 36 IU/L (46-116); ANION GAP 11 (8-16); ASPARTATE AMINO TRANSFERASE 26 U/L (10-37); BILIRUBIN,TOTAL 0.5 MG/DL (0.1-1.0); BLOOD UREA NITROGEN 8 MG/DL (7-18); BUN/CREATININE RATIO 6.7 (5.4-32.0); CALCIUM 8.3 MG/DL (8.5-10.1); CHLORIDE 104 MMOL/L (99-107); GLUCOSE 129 MG/DL (70-104); POTASSIUM 3.3 MMOL/L (3.5-5.1); SODIUM 138 MMOL/L (135-145); TOTAL CARBON DIOXIDE 23.1 MMOL/L (24-32); TOTAL PROTEIN 6.7 G/DL (6.4-8.2); eGFR 61 ML/MIN
[2021-09-21] MEDS ORDERED: magnesium 4gm in 100ml NS 100 ML IV PRN (10:25)
[2021-09-21] MEDS ORDERED: POTASSIUM BICARB 20meq eff tab 20 MEQ TABLET.EFF PO PRN (10:25)
[2021-09-21] MEDS ORDERED: magnesium 2GM in 50ml NS 50 ML IV PRN (10:25)
[2021-09-21] MEDS ORDERED: potassium CL 10mEq/100ml bag 100 ML IV PRN (10:25)
[2021-09-21] MEDS ORDERED: magnesium Cl slow-release 64mg tablet PO PRN (10:25)
--- NOTE | 2021-09-21 10:25 | NUR ---
Per blood bank patient does not have blood consent signed for blood that he received night before last. Hospitalist is not comfortable signing the blood consent, will have to wait for Dr. Cantrell to round.
[2021-09-21 10:27] VITALS: BP 96/72
[2021-09-21] MEDS: POTASSIUM BICARB 20meq eff tab 20 MEQ TABLET.EFF PO PRN ×3 (10:40→20:00)
--- NOTE | 2021-09-21 12:15 | NUR ---
PAGER ID: [phone] MESSAGE: [id number] [facility] culture just came back with myron from left groin. janae [phone]
[2021-09-21] MEDS: JUVEN Smoothie Arginine/Glut./Ca2+Bmb (Juven 19.3pkt) 240ml cup PO SCH ×2 (12:30→17:33)
--- NOTE | 2021-09-21 13:38 | NUR ---
Dr. Cantrell in to round on patient, relayed that culture in groin came back for myron, received orders for diflucan oral. Also discussed the fact that blood consent was not signed by a physician and it was ordered under Dr. Sol's name. He stated we need to speak with Ebenezer regarding this because he was not aware that the patient had even received a blood transfusion.
[2021-09-21] MEDS ORDERED: fluconazole 100mg tablet PO ONE (13:40)
[2021-09-21 14:00] VITALS: BP 97/60
[2021-09-21 18:00] VITALS: BP 101/59
--- NOTE | 2021-09-21 18:22 | NUR ---
Report given to TORIE Mike
--- NOTE | 2021-09-21 18:26 | NUR ---
PAGER ID: [phone] MESSAGE: [id number], Magedr aid reported blood in urine however I did not see it. just wanted to relay message to you and I will let oncoming nurse know to monitor for it. janae [phone]
[2021-09-21 22:00] VITALS: BP 100/59
[2021-09-22 02:00] VITALS: BP 89/59
--- NOTE | 2021-09-22 04:59 | NUR ---
wound vac beeping with detected leak. reinforced with tegaderm on bilat groin sites. agents' records clerk changed from yellow to green. doppler checked pulses.
[2021-09-22] MEDS: piperacillin/tazo 3.375gm/50ml 50 ML IV SCH ×3 (05:10→20:38)
[2021-09-22] MEDS: sodium chloride 0.45% 1,000 ML IV SCH ×2 (05:27→18:21)
[2021-09-22 06:00] VITALS: BP 98/60
[2021-09-22 06:12] LABS: BASOPHILS % (AUTO) 0.5 % (0-1); EOSINOPHILS # (AUTO) 0.3 X10'3 (0-0.9); HEMATOCRIT 29.9 % (42.0-52.0); LYMPHOCYTES # (AUTO) 0.7 X10'3 (1.1-4.8); LYMPHOCYTES % (AUTO) 10.7 % (21-51); MEAN CORPUSCULAR HEMOGLOBIN 31.3 PG (27.0-31.0); MEAN CORPUSCULAR HGB CONC 33.5 g/dL (33.0-36.5); MEAN CORPUSCULAR VOLUME 93.4 FL (78-98); MEAN PLATELET VOLUME 7.1 FL (7.4-10.4); MONOCYTES # (AUTO) 0.5 X10'3 (0-0.9); MONOCYTES % (AUTO) 8.1 % (2-12); NEUTROPHILS % (AUTO) 75.7 % (42-75); PLATELET COUNT 431 X10'3 (140-440); RED CELL DISTRIBUTION WIDTH 15.9 % (11.5-14.5); WHITE BLOOD COUNT 6.6 X10'3 (4.5-11.0)
--- NOTE | 2021-09-22 06:21 | NUR ---
Problems reprioritized. Patient report given, questions answered & plan of care reviewed with TORIE Doty.
[2021-09-22 06:43] LABS: ALANINE AMINOTRANSFERASE 17 U/L (12-78); ALBUMIN 2.6 G/DL (3.4-5.0); ALBUMIN/GLOBULIN RATIO 0.7 (1.1-1.5); ALKALINE PHOSPHATASE 32 IU/L (46-116); ANION GAP 9 (8-16); ASPARTATE AMINO TRANSFERASE 16 U/L (10-37); BILIRUBIN,TOTAL 0.4 MG/DL (0.1-1.0); BLOOD UREA NITROGEN 9 MG/DL (7-18); CALCIUM 7.9 MG/DL (8.5-10.1); CHLORIDE 110 MMOL/L (99-107); CREATININE 1.12 MG/DL (0.60-1.10); GLUCOSE 98 MG/DL (70-104); POTASSIUM 3.9 MMOL/L (3.5-5.1); SODIUM 141 MMOL/L (135-145); TOTAL CARBON DIOXIDE 21.6 MMOL/L (24-32); TOTAL PROTEIN 6.1 G/DL (6.4-8.2); eGFR 66 ML/MIN
[2021-09-22] MEDS: K and/or MAG REPLACEMENT MC SCH ×4 (08:00→20:00)
[2021-09-22] MEDS: clopidogrel 75mg tablet PO SCH (08:01)
[2021-09-22] MEDS: apixaban 5mg tablet PO SCH ×2 (08:01→20:39)
[2021-09-22] MEDS: docusate sod 100mg capsule PO SCH ×2 (08:01→20:38)
[2021-09-22] MEDS: famotidine 20mg tablet PO SCH ×2 (08:01→20:39)
[2021-09-22] MEDS: fluconazole 100mg tablet PO SCH (08:34)
--- NOTE | 2021-09-22 09:58 | NUR ---
Reassessment: Pt documented with 50% PO intake of first three meals once diet was advanced to regular however up to average 94% of two most recent meals. Pt now receiving a Singh smoothie BIDLD to assist with wound healing of which pt documented with 50% PO intake of first ONS however refused the second ONS. LBM 5/6. No additional nutrition intervention implemented at this time. Will continue to follow and make recommendations as appropriate. Recommendations: 1. Continue to regular diet; lipid panel WNL 2. Gypsy banana Singh smoothie BIDLD for wound healing 3. Monitor need for additional ONS 4. Routine bowel care 5. Weekly scaled wts Addendum: 09/22/21 at [address] Amended: Links added.
[2021-09-22 10:00] VITALS: BP 105/69
[2021-09-22] MEDS: JUVEN Smoothie Arginine/Glut./Ca2+Bmb (Juven 19.3pkt) 240ml cup PO SCH ×2 (12:30→18:00)
[2021-09-22 14:00] VITALS: BP 115/71
[2021-09-22 17:00] VITALS: BP 115/68
--- NOTE | 2021-09-22 19:08 | NUR ---
Spoke with Dr. Johnston due to dayshift struggling with air leaks on wound vac all day. Unable to get a good seal. says ok to take wound vac off and apply island dressings to surgical sites.
--- NOTE | 2021-09-22 19:30 | NUR ---
Removed wound vac, daniela intact bilaterally, island dressings placed. No drainage noticed when wound vac removed. Patient tolerated well.
[2021-09-22 22:00] VITALS: BP 107/67
[2021-09-23] MEDS: sodium chloride 0.45% 1,000 ML IV SCH ×2 (01:23→13:19)
[2021-09-23] MEDS: piperacillin/tazo 3.375gm/50ml 50 ML IV SCH ×3 (04:38→20:53)
[2021-09-23 05:34] LABS: BASOPHILS % (AUTO) 0.5 % (0-1); EOSINOPHILS # (AUTO) 0.4 X10'3 (0-0.9); EOSINOPHILS % (AUTO) 5.4 % (0-6); HEMATOCRIT 31.8 % (42.0-52.0); HEMOGLOBIN 10.5 g/dl (14.0-17.9); LYMPHOCYTES # (AUTO) 0.7 X10'3 (1.1-4.8); LYMPHOCYTES % (AUTO) 8.6 % (21-51); MEAN CORPUSCULAR HEMOGLOBIN 30.9 PG (27.0-31.0); MEAN CORPUSCULAR HGB CONC 33.1 g/dL (33.0-36.5); MEAN CORPUSCULAR VOLUME 93.3 FL (78-98); MEAN PLATELET VOLUME 6.7 FL (7.4-10.4); MONOCYTES # (AUTO) 0.6 X10'3 (0-0.9); MONOCYTES % (AUTO) 6.9 % (2-12); NEUTROPHILS # (AUTO) 6.3 X10'3 (1.8-7.7); NEUTROPHILS % (AUTO) 78.6 % (42-75); PLATELET COUNT 495 X10'3 (140-440); RED BLOOD COUNT 3.41 X10'6 (4.70-6.10); RED CELL DISTRIBUTION WIDTH 15.7 % (11.5-14.5)
[2021-09-23 05:48] LABS: ALANINE AMINOTRANSFERASE 23 U/L (12-78); ALBUMIN 2.7 G/DL (3.4-5.0); ALBUMIN/GLOBULIN RATIO 0.7 (1.1-1.5); ALKALINE PHOSPHATASE 37 IU/L (46-116); ANION GAP 14 (8-16); ASPARTATE AMINO TRANSFERASE 20 U/L (10-37); BILIRUBIN,TOTAL 0.4 MG/DL (0.1-1.0); BLOOD UREA NITROGEN 14 MG/DL (7-18); BUN/CREATININE RATIO 12.5 (5.4-32.0); CALCIUM 8.6 MG/DL (8.5-10.1); CHLORIDE 104 MMOL/L (99-107); CREATININE 1.12 MG/DL (0.60-1.10); GLUCOSE 104 MG/DL (70-104); POTASSIUM 4.1 MMOL/L (3.5-5.1); SODIUM 139 MMOL/L (135-145); TOTAL CARBON DIOXIDE 21.2 MMOL/L (24-32); TOTAL PROTEIN 6.4 G/DL (6.4-8.2); eGFR 66 ML/MIN
[2021-09-23 06:00] VITALS: BP 102/66
--- NOTE | 2021-09-23 06:30 | NUR ---
Patient in room ORTHO 4015. I have received report from [facility] and had the opportunity to ask questions and assume patient care.
--- NOTE | 2021-09-23 06:36 | NUR ---
Problems reprioritized. Patient report given, questions answered & plan of care reviewed with Crys VOGT.
[2021-09-23] MEDS: docusate sod 100mg capsule PO SCH ×2 (08:00→20:00)
[2021-09-23] MEDS: K and/or MAG REPLACEMENT MC SCH ×4 (08:00→20:00)
[2021-09-23] MEDS: apixaban 5mg tablet PO SCH ×2 (08:26→20:53)
[2021-09-23] MEDS: clopidogrel 75mg tablet PO SCH (08:26)
[2021-09-23] MEDS: mineral oil/petrolatum, white cream 113gm jar TP SCH (08:26)
[2021-09-23] MEDS: famotidine 20mg tablet PO SCH ×2 (08:26→20:53)
[2021-09-23] MEDS: fluconazole 100mg tablet PO SCH (08:26)
[2021-09-23 10:30] VITALS: BP 108/70
[2021-09-23] MEDS: JUVEN Smoothie Arginine/Glut./Ca2+Bmb (Juven 19.3pkt) 240ml cup PO SCH ×2 (13:14→17:42)
[2021-09-23 14:00] VITALS: BP 109/68
--- NOTE | 2021-09-23 17:09 | NUR ---
Transferred pt down to [facility] on [facility]. Addendum: 09/23/21 at 1710 by Crys Alonzo RN Disregard, different pt.
[2021-09-23 18:00] VITALS: BP 115/69
--- NOTE | 2021-09-23 18:21 | NUR ---
Problems reprioritized. Patient report given, questions answered & plan of care reviewed with
[2021-09-23] MEDS: Dakins solution (1/4 strength) 473ml solution TP SCH (20:55)
[2021-09-23 22:00] VITALS: BP 104/53
[2021-09-24] MEDS: sodium chloride 0.45% 1,000 ML IV SCH ×2 (02:03→16:25)
[2021-09-24] MEDS: piperacillin/tazo 3.375gm/50ml 50 ML IV SCH ×3 (05:08→20:42)
[2021-09-24 06:02] LABS: BASOPHILS % (AUTO) 0.5 % (0-1); EOSINOPHILS # (AUTO) 0.4 X10'3 (0-0.9); EOSINOPHILS % (AUTO) 5.5 % (0-6); HEMATOCRIT 32.4 % (42.0-52.0); LYMPHOCYTES # (AUTO) 0.6 X10'3 (1.1-4.8); LYMPHOCYTES % (AUTO) 8.8 % (21-51); MEAN CORPUSCULAR HEMOGLOBIN 32.1 PG (27.0-31.0); MEAN CORPUSCULAR HGB CONC 33.9 g/dL (33.0-36.5); MEAN CORPUSCULAR VOLUME 94.6 FL (78-98); MEAN PLATELET VOLUME 6.7 FL (7.4-10.4); MONOCYTES # (AUTO) 0.5 X10'3 (0-0.9); MONOCYTES % (AUTO) 7.5 % (2-12); NEUTROPHILS # (AUTO) 5.6 X10'3 (1.8-7.7); NEUTROPHILS % (AUTO) 77.7 % (42-75); PLATELET COUNT 531 X10'3 (140-440); RED BLOOD COUNT 3.42 X10'6 (4.70-6.10); RED CELL DISTRIBUTION WIDTH 15.5 % (11.5-14.5); WHITE BLOOD COUNT 7.3 X10'3 (4.5-11.0)
[2021-09-24 06:25] LABS: ALANINE AMINOTRANSFERASE 25 U/L (12-78); ALBUMIN 2.8 G/DL (3.4-5.0); ALBUMIN/GLOBULIN RATIO 0.7 (1.1-1.5); ALKALINE PHOSPHATASE 42 IU/L (46-116); ANION GAP 6 (8-16); ASPARTATE AMINO TRANSFERASE 19 U/L (10-37); BILIRUBIN,TOTAL 0.4 MG/DL (0.1-1.0); BLOOD UREA NITROGEN 13 MG/DL (7-18); BUN/CREATININE RATIO 10.7 (5.4-32.0); CALCIUM 8.4 MG/DL (8.5-10.1); CHLORIDE 105 MMOL/L (99-107); CREATININE 1.21 MG/DL (0.60-1.10); GLUCOSE 101 MG/DL (70-104); SODIUM 134 MMOL/L (135-145); TOTAL CARBON DIOXIDE 22.9 MMOL/L (24-32); TOTAL PROTEIN 6.6 G/DL (6.4-8.2); eGFR 60 ML/MIN
[2021-09-24 06:50] VITALS: BP 101/54
--- NOTE | 2021-09-24 06:56 | NUR ---
RECEIVED REPORT FROM MARYA RN
[2021-09-24] MEDS: K and/or MAG REPLACEMENT MC SCH ×3 (08:00→20:00)
[2021-09-24] MEDS: docusate sod 100mg capsule PO SCH ×2 (08:00→20:00)
[2021-09-24] MEDS: Dakins solution (1/4 strength) 473ml solution TP SCH ×2 (08:00→20:27)
[2021-09-24] MEDS: mineral oil/petrolatum, white cream 113gm jar TP SCH (08:00)
[2021-09-24 10:00] VITALS: BP 94/59
[2021-09-24] MEDS: clopidogrel 75mg tablet PO SCH (10:02)
[2021-09-24] MEDS: fluconazole 100mg tablet PO SCH (10:02)
[2021-09-24] MEDS: famotidine 20mg tablet PO SCH ×2 (10:02→20:27)
[2021-09-24] MEDS: multivitamins, therapeutics tablet PO SCH (10:02)
[2021-09-24] MEDS: apixaban 5mg tablet PO SCH ×2 (10:02→20:27)
[2021-09-24] MEDS: JUVEN Smoothie Arginine/Glut./Ca2+Bmb (Juven 19.3pkt) 240ml cup PO SCH ×2 (12:30→18:30)
[2021-09-24 14:28] LABS: % IRON SATURATION 15 % (11-46); IRON 33 UG/DL (53-167); TOTAL IRON BINDING CAPACITY 216 UG/DL (259-388)
[2021-09-24 18:00] VITALS: BP 101/61
--- NOTE | 2021-09-24 18:31 | NUR ---
Problems reprioritized. Patient report given, questions answered & plan of care reviewed with Martha VOGT.
[2021-09-24 22:00] VITALS: BP 106/62
[2021-09-25] MEDS: piperacillin/tazo 3.375gm/50ml 50 ML IV SCH ×2 (04:23→13:00)
[2021-09-25] MEDS: sodium chloride 0.45% 1,000 ML IV SCH (04:24)
[2021-09-25 06:00] VITALS: BP 98/55
--- NOTE | 2021-09-25 06:26 | NUR ---
Patient in room ORTHO 4015. I have received report from Brennen RN and had the opportunity to ask questions and assume patient care.
[2021-09-25 06:32] LABS: BASOPHILS % (AUTO) 0.5 % (0-1); EOSINOPHILS # (AUTO) 0.4 X10'3 (0-0.9); EOSINOPHILS % (AUTO) 5.5 % (0-6); HEMATOCRIT 30.4 % (42.0-52.0); HEMOGLOBIN 10.3 g/dl (14.0-17.9); LYMPHOCYTES # (AUTO) 0.7 X10'3 (1.1-4.8); LYMPHOCYTES % (AUTO) 11.2 % (21-51); MEAN CORPUSCULAR HEMOGLOBIN 31.9 PG (27.0-31.0); MEAN CORPUSCULAR HGB CONC 33.9 g/dL (33.0-36.5); MEAN PLATELET VOLUME 6.7 FL (7.4-10.4); MONOCYTES # (AUTO) 0.5 X10'3 (0-0.9); MONOCYTES % (AUTO) 8.5 % (2-12); NEUTROPHILS # (AUTO) 4.8 X10'3 (1.8-7.7); NEUTROPHILS % (AUTO) 74.3 % (42-75); PLATELET COUNT 535 X10'3 (140-440); RED BLOOD COUNT 3.24 X10'6 (4.70-6.10); RED CELL DISTRIBUTION WIDTH 15.5 % (11.5-14.5); WHITE BLOOD COUNT 6.4 X10'3 (4.5-11.0)
[2021-09-25] MEDS ORDERED: levoTHYROXINE 25mcg tablet PO SCH (07:00)
[2021-09-25 07:13] LABS: ALANINE AMINOTRANSFERASE 23 U/L (12-78); ALBUMIN 2.7 G/DL (3.4-5.0); ALBUMIN/GLOBULIN RATIO 0.7 (1.1-1.5); ALKALINE PHOSPHATASE 41 IU/L (46-116); ANION GAP 11 (8-16); ASPARTATE AMINO TRANSFERASE 16 U/L (10-37); BILIRUBIN,TOTAL 0.3 MG/DL (0.1-1.0); BLOOD UREA NITROGEN 14 MG/DL (7-18); BUN/CREATININE RATIO 10.4 (5.4-32.0); CALCIUM 8.3 MG/DL (8.5-10.1); CHLORIDE 107 MMOL/L (99-107); CREATININE 1.34 MG/DL (0.60-1.10); GLUCOSE 97 MG/DL (70-104); POTASSIUM 4.3 MMOL/L (3.5-5.1); SODIUM 140 MMOL/L (135-145); TOTAL CARBON DIOXIDE 22.5 MMOL/L (24-32); TOTAL PROTEIN 6.5 G/DL (6.4-8.2); eGFR 53 ML/MIN
[2021-09-25] MEDS: clopidogrel 75mg tablet PO SCH (07:40)
[2021-09-25] MEDS: famotidine 20mg tablet PO SCH (07:40)
[2021-09-25] MEDS: apixaban 5mg tablet PO SCH (07:40)
[2021-09-25] MEDS: docusate sod 100mg capsule PO SCH (07:40)
[2021-09-25] MEDS: multivitamins, therapeutics tablet PO SCH (07:40)
[2021-09-25] MEDS ORDERED: fluconazole 100mg tablet PO SCH (08:00)
[2021-09-25] MEDS: mineral oil/petrolatum, white cream 113gm jar TP SCH (08:00)
[2021-09-25] MEDS: Dakins solution (1/4 strength) 473ml solution TP SCH (08:00)
[2021-09-25] MEDS: K and/or MAG REPLACEMENT MC SCH (08:00)
[2021-09-25] MEDS ORDERED: FLUC100T64 PO (11:44)
[2021-09-25] MEDS ORDERED: APIX5TAB3 PO (11:44)
[2021-09-25] MEDS ORDERED: MULT-25 PO (11:44)
[2021-09-25] MEDS ORDERED: CLOP75TA34 PO (11:44)
[2021-09-25] MEDS ORDERED: FAMO20TA8 PO (11:44)
[2021-09-25] MEDS ORDERED: LEVO25TA7 PO (11:44)
--- NOTE | 2021-09-25 12:16 | NUR ---
call made to Dr quigley office with regards removal of patient daniela. Office advised for patient to call office and make an appointment to see Dr rosa first before removal. patient aware.
[2021-09-25] MEDS: JUVEN Smoothie Arginine/Glut./Ca2+Bmb (Juven 19.3pkt) 240ml cup PO SCH (12:30)
--- NOTE | 2021-09-25 13:32 | NUR ---
All DC Instructions given to patient. groin sites TELEPATHIST dressings will not stay on with patients skin condition. No drainage or hematoma observed at bilat sites. doppler pulses distal pedal heard. x2. patient DC home via private car with sister to home.
[2021-09-26] MEDS ORDERED: apixaban 5mg tablet PO SCH (20:00)
== END 2021-09-25 13:45 | disposition home or self-care (01) | DRG 270 ==
LOC: ER 10:08 → ED HOLD 18:06 → PCU 3S 09-07 15:57 → ICU 2S 09-11 11:45 → ORTHO 4S 09-13 17:00 → CICU 2S 09-17 20:50 → ORTHO 4S 09-18 16:45 → CICU 2S 09-19 16:06 → ORTHO 4S 09-20 15:00
PROVIDERS: ADMIT Family Medicine; ATTEND Family Medicine
PROC: B4201ZZ Computerized Tomography (CT Scan) of Abdominal Aorta using Low Osmolar Contrast (ICD-10-PCS; 2021-09-06)
PROC: B4241ZZ Computerized Tomography (CT Scan) of Superior Mesenteric Artery using Low Osmolar Contrast (ICD-10-PCS; 2021-09-06)
PROC: B4281ZZ Computerized Tomography (CT Scan) of Bilateral Renal Arteries using Low Osmolar Contrast (ICD-10-PCS; 2021-09-06)
PROC: B42C1ZZ Computerized Tomography (CT Scan) of Pelvic Arteries using Low Osmolar Contrast (ICD-10-PCS; 2021-09-06)
PROC: B42H1ZZ Computerized Tomography (CT Scan) of Bilateral Lower Extremity Arteries using Low Osmolar Contrast (ICD-10-PCS; 2021-09-06)
PROC: B4211ZZ Computerized Tomography (CT Scan) of Celiac Artery using Low Osmolar Contrast (ICD-10-PCS; 2021-09-06)
PROC: 4A02XM4 Measurement of Cardiac Total Activity, External Approach (ICD-10-PCS; 2021-09-08)
PROC: 3E033HZ Introduction of Radioactive Substance into Peripheral Vein, Percutaneous Approach (ICD-10-PCS; 2021-09-08)
PROC: 04PY0JZ Removal of Synthetic Substitute from Lower Artery, Open Approach (ICD-10-PCS; 2021-09-11)
PROC: 03HY32Z Insertion of Monitoring Device into Upper Artery, Percutaneous Approach (ICD-10-PCS; 2021-09-11)
PROC: 02HV33Z Insertion of Infusion Device into Superior Vena Cava, Percutaneous Approach (ICD-10-PCS; 2021-09-11)
PROC: B548ZZA Ultrasonography of Superior Vena Cava, Guidance (ICD-10-PCS; 2021-09-11)
PROC: 04100JJ Bypass Abdominal Aorta to Left Femoral Artery with Synthetic Substitute, Open Approach (ICD-10-PCS; principal; 2021-09-11 10:08)
PROC: B4201ZZ Computerized Tomography (CT Scan) of Abdominal Aorta using Low Osmolar Contrast (ICD-10-PCS; 2021-09-14)
PROC: B4241ZZ Computerized Tomography (CT Scan) of Superior Mesenteric Artery using Low Osmolar Contrast (ICD-10-PCS; 2021-09-14)
PROC: B4281ZZ Computerized Tomography (CT Scan) of Bilateral Renal Arteries using Low Osmolar Contrast (ICD-10-PCS; 2021-09-14)
PROC: B42C1ZZ Computerized Tomography (CT Scan) of Pelvic Arteries using Low Osmolar Contrast (ICD-10-PCS; 2021-09-14)
PROC: B42H1ZZ Computerized Tomography (CT Scan) of Bilateral Lower Extremity Arteries using Low Osmolar Contrast (ICD-10-PCS; 2021-09-14)
PROC: B4211ZZ Computerized Tomography (CT Scan) of Celiac Artery using Low Osmolar Contrast (ICD-10-PCS; 2021-09-14)
PROC: B42H1ZZ Computerized Tomography (CT Scan) of Bilateral Lower Extremity Arteries using Low Osmolar Contrast (ICD-10-PCS; 2021-09-14)
PROC: 04CN0ZZ Extirpation of Matter from Left Popliteal Artery, Open Approach (ICD-10-PCS; 2021-09-17)
PROC: 041L0JL Bypass Left Femoral Artery to Popliteal Artery with Synthetic Substitute, Open Approach (ICD-10-PCS; 2021-09-17)
PROC: B4201ZZ Computerized Tomography (CT Scan) of Abdominal Aorta using Low Osmolar Contrast (ICD-10-PCS; 2021-09-18)
PROC: B4241ZZ Computerized Tomography (CT Scan) of Superior Mesenteric Artery using Low Osmolar Contrast (ICD-10-PCS; 2021-09-18)
PROC: B4281ZZ Computerized Tomography (CT Scan) of Bilateral Renal Arteries using Low Osmolar Contrast (ICD-10-PCS; 2021-09-18)
PROC: B42C1ZZ Computerized Tomography (CT Scan) of Pelvic Arteries using Low Osmolar Contrast (ICD-10-PCS; 2021-09-18)
PROC: B42H1ZZ Computerized Tomography (CT Scan) of Bilateral Lower Extremity Arteries using Low Osmolar Contrast (ICD-10-PCS; 2021-09-18)
PROC: B4211ZZ Computerized Tomography (CT Scan) of Celiac Artery using Low Osmolar Contrast (ICD-10-PCS; 2021-09-18)
PROC: 04QL0ZZ Repair Left Femoral Artery, Open Approach (ICD-10-PCS; 2021-09-19)
PROC: 04CL0ZZ Extirpation of Matter from Left Femoral Artery, Open Approach (ICD-10-PCS; 2021-09-19)
PROC: 30233N1 Transfusion of Nonautologous Red Blood Cells into Peripheral Vein, Percutaneous Approach (ICD-10-PCS; 2021-09-20)
DX: T82.898A Other specified complication of vascular prosthetic devices, implants and grafts, initial encounter (principal); N17.0 Acute kidney failure with tubular necrosis; J96.01 Acute respiratory failure with hypoxia; M86.8X7 Other osteomyelitis, ankle and foot; I74.5 Embolism and thrombosis of iliac artery; L03.116 Cellulitis of left lower limb; I73.9 Peripheral vascular disease, unspecified; Z20.822 Contact with and (suspected) exposure to COVID-19; D64.9 Anemia, unspecified; F17.210 Nicotine dependence, cigarettes, uncomplicated; E87.6 Hypokalemia; Y83.2 Surgical operation with anastomosis, bypass or graft as the cause of abnormal reaction of the patient, or of later complication, without mention of misadventure at the time of the procedure; J44.9 Chronic obstructive pulmonary disease, unspecified; Q80.9 Congenital ichthyosis, unspecified; Z85.46 Personal history of malignant neoplasm of prostate; Z85.51 Personal history of malignant neoplasm of bladder; Z89.411 Acquired absence of right great toe; Z89.412 Acquired absence of left great toe; Z91.19 Patient's noncompliance with other medical treatment and regimen; Z79.899 Other long term (current) drug therapy; Y92.89 Other specified places as the place of occurrence of the external cause
CPT/HCPCS: 36160; 36415; 36430; 36600; 37184; 37224; 71045; 73630; 75635; 75710; 78452; 80047; 80053; 80061; 80202; 81003; 82607; 82803; 82948; 83036; 83540; 83550; 83605; 83735; 84100; 84132; 84145; 84443; 84484; 85007; 85018; 85025; 85027; 85610; 85730; 86885; 86900; 86901; 86920; 87040; 87070; 87075; 87081; 87176; 87205; 87635; 88300; 88304; 88305; 93017; 93306; 93922; 93926; 94002; 94003; 94760; 96365; 96366; 96367; 97116; 97161; 97530; 97535; 99152; 99153; 99285; A4618; A6455; A7000; A9500; C1725; C1757; C1758; C1768; C1769; C1894; G0378; J0690; J0692; J0694; J1100; J1170; J1580; J1644; J1650; J2250; J2370; J2405; J2543; J2704; J2710; J2785; J3010; J3370; J3490; J7030; J7040; J7050; J7060; J7120; P9016; P9045; Q9967

== ENCOUNTER 2021-11-02 06:33 | Day surgery (SDC) | payer MEDICARE, OTHER, MEDICAID ==
[2021-10-26 11:15] LABS: BASOPHILS % (AUTO) 0.8 % (0-1); EOSINOPHILS # (AUTO) 0.2 X10'3 (0-0.9); EOSINOPHILS % (AUTO) 4.2 % (0-6); LYMPHOCYTES # (AUTO) 0.8 X10'3 (1.1-4.8); LYMPHOCYTES % (AUTO) 16.4 % (21-51); MEAN CORPUSCULAR VOLUME 94.3 FL (78-98); MONOCYTES # (AUTO) 0.4 X10'3 (0-0.9); MONOCYTES % (AUTO) 7.6 % (2-12); NEUTROPHILS # (AUTO) 3.4 X10'3 (1.8-7.7); PRE OP HEMATOCRIT 31.8 % (42.0-52.0); PRE OP PLATELET COUNT 360 X10'3 (140-440); RED BLOOD COUNT 3.37 X10'6 (4.70-6.10); RED CELL DISTRIBUTION WIDTH 16.3 % (11.5-14.5)
[2021-10-26 11:18] LABS: PRE OP HEMOGLOBIN 10.8 g/dL (14.0-17.9)
[2021-10-26 11:18] LABS: CLARITY,URINE CLEAR (Clear); COLOR,URINE YELLOW (Yellow); GLUCOSE, URINE NEGATIVE (Neg); KETONES,URINE NEGATIVE (Neg); LEUKOCYTE ESTERASE ,URINE NEGATIVE (Neg); NITRITES, URINE NEGATIVE (Neg); OCCULT BLOOD,URINE NEGATIVE (Neg); PH,URINE 5.5 (4.8-8.0); PROTEIN,URINE NEGATIVE (Neg); UROBILINOGEN,URINE 0.2 E.U/dL (0.2-1.0)
[2021-10-26 11:21] LABS: UA COLLECTION TYPE CLN CATCH MIDSTREAM
[2021-10-26 11:27] LABS: ALBUMIN 3.4 G/DL (3.4-5.0); ALBUMIN/GLOBULIN RATIO 0.9 (1.1-1.5); ALKALINE PHOSPHATASE 68 IU/L (46-116); BLOOD UREA NITROGEN 15 MG/DL (7-18); BUN/CREATININE RATIO 12.7 (5.4-32.0); CALCIUM 8.8 MG/DL (8.5-10.1); CHLORIDE 106 MMOL/L (99-107); CREATININE 1.18 MG/DL (0.60-1.10); PRE OP ALT 17 U/L (30-65); PRE OP ANION GAP 6 (8-16); PRE OP AST 16 U/L (10-37); PRE OP BILIRUB, TOTAL 0.2 MG/DL (0.0-1.0); PRE OP GLUCOSE 108 MG/DL (70-104); PRE OP POTASSIUM 4.2 MMOL/L (3.4-5.1); PRE OP SODIUM 140 MMOL/L (135-145); TOTAL CARBON DIOXIDE 27.8 MMOL/L (24-32); TOTAL PROTEIN 7.2 G/DL (6.4-8.2); eGFR 62 ML/MIN
[~2021-11-02] VITALS: Ht 182.9 cm; Wt 70.2 kg
[2021-11-02] VITALS (8 sets, daily range): BP systolic 93–116; BP diastolic 56–75
[~2021-11-02 06:33] MED LIST changes: +APIX5TAB3 PO; -ASPI-1265 PO; -ATOR20TA PO; +CLOP75TA34 PO; -DILT60CA2 PO; +FAMO20TA8 PO; -FLEC50TA28 PO; +LEVO25TA7 PO; +ceFAZolin inj. 2,000 MG in dextrose 5%-water 100 ML IV ONE; +famotidine 20mg tablet PO ONE; +ringers solution, lacted 1,000 ML IV SCH
[2021-11-02] MEDS ORDERED: BUPIVAcaine/PF 2.5mg/ml (0.25%) 10ml vial ONE ×2 (06:47→08:05)
[2021-11-02] MEDS ORDERED: bacitracin 15gm ointment TP ONE (06:47)
[2021-11-02] MEDS ORDERED: CLOP75TA4 PO (07:33)
[2021-11-02] MEDS ORDERED: FAMO20TA8 PO (07:33)
[2021-11-02] MEDS ORDERED: APIX5TAB3 PO (07:33)
[2021-11-02] MEDS ORDERED: LEVO25CA4 PO (07:33)
[2021-11-02] MEDS ORDERED: fentaNYL/PF 50MCG/1 ML 2ML syringe ONE (08:15)
[2021-11-02] MEDS ORDERED: sevoflurane 250ml liquid IH ONE (08:17)
[2021-11-02] MEDS ORDERED: rocuronium 10mg/ml inj IV ONE (08:17)
[2021-11-02] MEDS ORDERED: ondansetron/PF 4mg/2ml inj ONE (08:49)
[2021-11-02] MEDS ORDERED: dexamethasone sod phosphate 4mg/ml inj. ONE (08:49)
[2021-11-02] MEDS ORDERED: propofol inj 20 ML IV ONE (08:49)
[2021-11-02] MEDS ORDERED: LIDOcaine 1%/PF 5ML 10 MG/ML VIAL ONE (08:49)
[2021-11-02] MEDS ORDERED: sugammadex 200mg/2ml injection IV ONE (08:49)
[2021-11-02] MEDS ORDERED: ePHEDrine 50MG/ML INJ. ONE (08:49)
--- NOTE | 2021-11-02 09:00 | NUR ---
PT ARRIVED TO RR VIA RUBEN ACCOMPANIED BY DR. GODDARD-ANESTHESIA REPORT GIVEN, VSS, DENIES PAIN, PT WAKING UP, BLE ELEVATED, LEFT FOOT-WRAPPED, TOES PINK WARM, PIV 20G LEFT HAND, SCD ON RIGHT
[2021-11-02] MEDS ORDERED: morphine 4 MG/ML inj SYRINge IV PRN (09:10)
[2021-11-02] MEDS ORDERED: meperidine/PF 25mg/ml syringe IV PRN ×3 (09:10)
[2021-11-02] MEDS ORDERED: morphine 2 MG/ML inj. syringe IV PRN (09:10)
[2021-11-02] MEDS ORDERED: ondansetron/PF 4mg/2ml inj IV PRN (09:10)
[2021-11-02] MEDS ORDERED: proCHLORperazine 10 MG/2 ml inj IV PRN (09:10)
[2021-11-02] MEDS ORDERED: ringers solution, lacted 1,000 ML IV SCH (09:10)
--- NOTE | 2021-11-02 10:10 | NUR ---
PT UP AND DRESSED, VSS, DENIES PAIN, CSM INTACT TO LEFT FOOT-TOES PINK AND WARM, ADDED 4X4S AND YVETTE WRAP TO LEFT FOOT D/T SOME SEEPAGE OF BLOOD AT SURGERY SITE AFTER HAVING FOOT DOWN TO GET DRESSED, ENCOURAGED PT TO KEEP ELEVATED WHEN NOT UP, GIVEN D/C INSTRUCTIONS-ALL QUESTIONS ANSWERED, PIV D/CD-CANULA INTACT, SCDS OFF, TAKEN VIA W/C TO SISTERS VEHICLE FOR TRANSPORT HOME WITH ALL BELONGINGS
== END 2021-11-02 10:10 | disposition home or self-care (01) ==
LOC: PAS 06:33 → EDSTATUS 10:00 → PAS 10:10
PROVIDERS: ATTEND Podiatrist Foot & Ankle Surgery
DX: M86.8X7 Other osteomyelitis, ankle and foot (principal); L97.529 Non-pressure chronic ulcer of other part of left foot with unspecified severity; E78.5 Hyperlipidemia, unspecified; E03.9 Hypothyroidism, unspecified; I10 Essential (primary) hypertension; Z85.51 Personal history of malignant neoplasm of bladder; Z98.890 Other specified postprocedural states; Z79.899 Other long term (current) drug therapy; Z98.42 Cataract extraction status, left eye; Z79.01 Long term (current) use of anticoagulants; Z87.891 Personal history of nicotine dependence
CPT/HCPCS: 28810; 36415; 80053; 81003; 82948; 85025; 93005; A6222; J0690; J1100; J2405; J2704; J3010; J3490; J7030; J7060; J7120; Z7506; Z7512; A4215; A4618; A6446; A6449; A7000